=== PATIENT | male | born 1960 | race Caucasian/White ===

== ENCOUNTER 2016-11-17 06:34 | Day surgery (SDC) | payer OTHER ==
[~2016-11-17] VITALS: Ht 172.7 cm; Wt 113.1 kg
[~2016-11-17 06:34] MED LIST: AMOX500C PO; LISI20TA3 PO; MEDR4PAK PO; METO50TA PO
[2016-11-17] MEDS ORDERED: NS 1000P @30 MLS/HR (KVO) IV SCH (07:00)
[2016-11-17 07:13] VITALS: BP 132/82; PULSE 62; RESP 18; TEMP 98; O2SAT 96
[2016-11-17] MEDS ORDERED: OMEGCAP PO (07:18)
[2016-11-17] MEDS ORDERED: XARE20TA PO (07:18)
[2016-11-17] MEDS ORDERED: AMLO5TAB2 PO (07:18)
[2016-11-17] MEDS ORDERED: METO100T PO (07:18)
[2016-11-17] MEDS ORDERED: CHOL1CAP24 PO (07:18)
[2016-11-17] MEDS ORDERED: ROSU1TAB4 PO (07:18)
[2016-11-17] MEDS ORDERED: MIDAZOLAM HCL 2 MG/2 ML VIAL ONE (08:30)
[2016-11-17] MEDS ORDERED: HEPARIN-NS/PF INJ 500 ML ONE (08:30)
[2016-11-17] MEDS ORDERED: LORazepam 2 MG/ML VIAL IV PRN (09:15)
[2016-11-17] MEDS ORDERED: MISC INFORMATION XX ONE (09:15)
[2016-11-17] MEDS ORDERED: SODIUM CHLOR 0.9% 250 ML INJ 250 ML IV PRN (09:15)
[2016-11-17] MEDS ORDERED: BACITRACIN OINT 0.9 GM PKT TOP ONE (09:15)
[2016-11-17] MEDS ORDERED: ONDANSETRON HCL 4 MG/2 ML VIAL IV PRN (09:15)
[2016-11-17] MEDS ORDERED: ATROPINE SULFATE 1 MG/ML VIAL IV PRN (09:15)
[2016-11-17] MEDS ORDERED: LIDOCAINE HCL 1% 50 ML VIAL INFIL PRN (09:15)
--- NOTE | 2016-11-17 09:18 | CATHPROC ---
pickrset HIS Report Study Information Study Number Admission Scheduled Start Study Start [id number] Nov 17 2016 6:34AM 11/17/2016 Nov 17 2016 8:20AM [facility] Service Cardiac Catheterization Admit Source Facility Department Other [facility] - Net Developer Consultant Physician and Clinical Staff Initial Dorian Grullon Principal Automation Engineer Srinivasa Andersen,PREET Recorder Reyna Johnson,RT(R) (BS) Scrub Edi TomasRT(R) Procedures Performed Procedure Location (Site) Vessel Name Angiogram LV AO Arch (A1) Aorta Angiogram LV LV Ventricle Coronary Angiograms LCA Left Coronary Coronary Angiograms RCA Right Coronary L Heart Cath Equipment Time Card Folder Description Size Mfg Part Number Used/Scraped TRANSDUCER, TRLinux VoiceLILI [id number] 08:22 DIAS MACIAS * Used W/STOCKCOCK *[id number] [id number] *[id number] [id number] *[id number] [id number] *[id number] 534-650S *[id number] 08:22 MEDLINE IND[employer]ES PACK, CCL CUSTOM * Used *[id number] 08:22 Avison Young PACER PEN, SKIN DUAL W/ RULER * Used *[id number] 08:22 Datalink MEDICAL SHEATH, FR6.5 PRELUDE 11CM FR 6.5 038ACT Used *[id number] 08:22 Datalink MEDICAL WIRE, 3MMJ .035 180CM 180CM Used *[id number] 08:22 NAMIC MANIFOLD, 4 PORT * Used *[id number] 09:09 NAMIC TUBING, HIGH PRESSURE 48" 48" Used *[id number] 08:22 NYCOMED OMNIPAQUE, 350 MG, 100ML 100ML [id number] Used [id number] 08:22 JONES MEDICAL BLANKET,WARM AIR CCL * Used *[id number] History: Current Medications Medication Dosage/Unit Route Frequency Last Date/Time Taken LISINOPRIL Beta Vinnie Statins (any) History: Allergies Allergy Reaction No Known Allergies History: Risk Factors Family History of Hypertension Dyslipidemia Previous [place] Previous Heart Failure Premature CAD Yes Yes Yes No No Prior Valve Prior PCI Prior CABG Surgery No No No Cerebrovascular Peripheral Artery Chronic Lung On Dialysis Diabetes Disease Disease Disease No No No No No History: Stress Tests Stress or Imaging Studies Performed Yes Standard Exercise Stress Test No Stress Echo No Stress Test SPECT Stress Test SPECT Result Stress Test SPECT Ischemia Risk/Extent Yes Positive High Stress Test CMR No Cardiac CTA Coronary Calcium Score No No History: Other Current Smoker Method Quit Packs a Day Years Used Pack Years No Cigarettes 14 Years Ago 1 25 25 Labs Hgb (g/dl) Hct (%) RBC (MIL/MM3) WBC (l/cumm) Platelets (thousands) 11.60-17.00 35.00-51.00 4.00-5.90 4.00-11.00 150.00-450.00 13.8 41.3 5.1 5.7 196 Glucose (mg/dl) BUN (mg/dl) Creatinine (mg/dl) BUN:Creatinine (1:x) 74.00-106.00 7.00-18.00 0.50-1.30 10.00-20.00 66 17 0.7 24.3 Na (meq/l) K (meq/l) Ca (mg/dl) 136.00-145.00 3.50-5.10 8.50-10.10 141 4.3 9.3 INR (PTT:PT) 0.90-1.10 1.1 CPK-MB (ng/ML) 0.50-3.60 Not Drawn Medication Medication Total Dose (Bolus/Oral) Medication Total Dosage/Unit 1% XYLOCAINE 40 mL VERSED 2 mg Medications (Bolus/Oral) Medication Time Given Dosage/Unit Administered By Reason 1% XYLOCAINE 11/17/2016 8:39:41 AM 20 mL Dorian Torrez 20 mL 1% XYLOCAINE given in lab by Dorian Torrez in Right Groin via Subcutaneous. VERSED 11/17/2016 8:39:55 AM 2 mg Dorian Torrez 2 mg VERSED given in lab by Dorian Torrez in Left Antecubital via Peripheral IV. 1% XYLOCAINE 11/17/2016 8:47:30 AM 20 mL Dorian Torrez 20 mL 1% XYLOCAINE given in lab by Dorian Torrez in Left Groin via Subcutaneous. Medication (Drip) Medication Time Given Dosage/Unit Concentration/Unit Diluent (ml) Solutio n IV Solutions 11/17/2016 8:30:38 AM 0 mL (IV) 500 NaCl .9 IV Solutions given in lab by Srinivasa Andersen RN in Left Wrist via Peripheral IV. Pump/Drip Flow = 20 ml/hr using NaCl .9. Initial Case Assessment Cardiovascular HR Rhythm NIBP Chest Pain 59 reg 144/88 0 Edema Present Skin color Skin None Normal Warm Dry Circulatory - Right Pulses Dorsalis Pedis Femoral 1 1 Scale (0,1,2,3,4,d) Circulatory - Left Pulses Dorsalis Pedis Femoral 1 1 Scale (0,1,2,3,4,d) Circulatory - Lower Extremities Color Lower Right Color Lower Left Normal Normal Neurological State Oriented to time-place- Alert Moves all extremities person Respiration - General Respiration Rate SpO2 (%) (B/min) 17 98 Chronological Log Time Study Chronological Log 8:23:06 Patient arrived via Bed. 8:23:07 Patient Name, D.O.B, / Armband Verified By R.N. 8:23:07 Consent signed by the physician and the patient and verified by the Net Developer Consultant staff. 8:23:08 Pre-op and post- op instructions given; patient acknowledges understanding of instructions. 8:23:09 Verbal Stimulation=2 Physical Stimulation=2 Airway=2 Respiration=2 TOTAL=8. (0=absent, 1=tesfaye ited, 2=present) 8:23:11 Presedation assessment performed by Net Developer Consultant RN. 8:30:27 Patient has been NPO for More than 6Hrs. 8:30:29 Skin Breakdown none per pt 8:30:35 Patient Warmer Placed on the Table. 8:30:37 A # 20 IV was noted in the Wrist (left). Grade = 0 8:30:38 IV Solutions given in lab by Srinivasa Andersen, RN in Left Wrist via Peripheral IV. Pump/Drip F low = 20 ml/hr using NaCl .9. 8:30:39 History and physical on the chart or being dictated. Assessment: Initial Case, HR=59 BPM, Rhythm=reg, FRGN=560/88 mmhg, Chest Pain=0, Edema=None, Col or=Normal, Skin = Warm, Dry Right Pulses: Adrian Ped=1, Femoral=1 Left Pulses: Adrian Ped=1, Femoral=1 8:30:41 Lower Right Extremities: Color=Normal Lower Left Extremities: Color=Normal Neurological: State=Alert, Ox3, FRANK Respiration: Resp=17 B/min, SpO2=98 % Vitals capture started with the following parameters, Patient=Adult, Interval=5 min, Initial Pre ypnar=348 mmHg, 8:30:43 Deflation Rate=5 mmHg 8:31:55 HR=60 bpm, CJVO=530/88 mmhg, SpO2=98.0 %, Resp=17 B/min, Pain=0, Cipriano=10, Aaron=2 8:32:00 Reference ECG taken 8:34:02 Bilateral groins prepped with 2% chlorhexidine, and with a 3 min. waiting time. 8:36:23 HR=62 bpm, NCMA=703/93 mmhg, SpO2=99.0 %, Resp=13 B/min, Pain=0, Cipriano=10, Aaron=2 Time Out. Correct patient, correct procedure,correct physician, power injector loaded with contr ast with surgical team 8:39:20 present. Time Out Concurred by , individual staff in procedure 8:39:39 Case Start 8:39:41 20 mL 1% XYLOCAINE given in lab by Dorian Torrez in Right Groin via Subcutaneous. 8:39:55 2 mg VERSED given in lab by Dorian Torrez in Left Antecubital via Peripheral IV. 8:41:26 HR=64 bpm, SBDJ=765/90 mmhg, SpO2=98.0 %, Resp=16 B/min, Pain=0, Cipriano=10, Aaron=2 8:42:30 Pressure channel 1 zeroed. 8:46:23 HR=63 bpm, YATB=744/83 mmhg, SpO2=97.0 %, Resp=17 B/min, Pain=0, Cipriano=10, Aaron=2 8:47:30 20 mL 1% XYLOCAINE given in lab by Dorian Torrez in Left Groin via Subcutaneous. 8:51:20 HR=65 bpm, VHXW=808/91 mmhg, SpO2=99.0 %, Resp=15 B/min, Pain=0, Cipriano=10, Aaron=2 8:51:32 Access site was Left Femoral Artery. 8:51:36 A SHEATH, FR6.5 PRELUDE 11CM FR 6.5 was advanced into the Fem Art (left) using the Percutane ous technique. A JL 4.0 INFINITI CATHETER FR 6 was advanced over a wire. OMNIPAQUE, 350 MG, 100ML 100ML was use d for 8:51:50 injections. Recorded Pressure: Ao, NZ=453, Condition=Condition 1 8:52:27 (Aorta) Ao 120/86/102 8:54:00 Catheter was removed A JR 4.0 INFINITI CATHETER FR 6 was advanced over a wire. OMNIPAQUE, 350 MG, 100ML 100ML was use d for 8:54:39 injections. 8:55:32 The RCA was injected and visualized at various angles. OMNIPAQUE, 350 MG, 100ML 100ML used. 8:56:25 HR=62 bpm, XYSZ=674/79 mmhg, SpO2=99.0 %, Resp=17 B/min, Pain=0, Cipriano=10, Aaron=2 8:57:01 Catheter was removed A JL 4.5 INFINITI CATHETER FR 6 was advanced over a wire. OMNIPAQUE, 350 MG, 100ML 100ML was u sed for 8:57:06 injections. 8:58:49 The LCA was injected and visualized at various angles. OMNIPAQUE, 350 MG, 100ML 100ML use d. 8:59:55 Catheter was removed A PIGTAIL STR INFINITI CATHETER FR 6 was advanced over a wire. OMNIPAQUE, 350 MG, 100ML 100ML was used for 9:00:11 injections. 9:01:26 HR=60 bpm, MJRU=724/82 mmhg, SpO2=99.0 %, Resp=16 B/min, Pain=0, Cipriano=10, Aaron=2 Recorded Pressure: LV, HR=63, Condition=Condition 1 9:01:49 (Left Ventricle) LV 132/8/24 9:05:08 The LV was injected at 12 cc/sec for a total of 30. OMNIPAQUE, 350 MG, 100ML 100ML used. 9:06:11 The AO Arch (A1) was injected at 20 cc/sec for a total of 40. OMNIPAQUE, 350 MG, 100ML 100 ML used. 9:06:27 HR=62 bpm, FCGP=926/74 mmhg, VaC1=959.0 %, Resp=16 B/min, Pain=0, Cipriano=10, Aaron=2 9:07:18 Catheter was removed 9:08:34 Case End 9:08:43 Catheter(s) removed without difficulty 9:08:50 No case complications noted. 9:08:53 Cine recording checked. 9:09:01 Bedside Report will be given. 9:09:04 Contrast Scanned 9:09:16 A Left Heart Cath was performed. 9:09:23 Sterile dressing applied to site 9:09:33 DOCU called. Spoke to Carmita. 9:11:27 FOWP=738/87 mmhg, SpO2=98.0 %, Pain=0, Cipriano=10, Aaron=2 9:11:42 Vitals capture stopped. 9:14:34 Patient moved to stretcher End Study - Contrast Media Used In Study Contrast Total Opened (mL) Total Used (mL) Total Wasted (mL) Omnipaque 120 120 0 End Study - Maximum Contrast Load Max Contrast Load (mL) 807.8 End Study - Radiation Exposure Fluoro Time (minutes) 2.9 End Study - Patient Disposition Complications Transferred To Interventional Outcome No Net Developer Consultant Holding No attempt made
[2016-11-17] MEDS ORDERED: IOHEXOL 350 MG/ML 100 ML BTL (for Cath Lab) OTHER ONE (09:20)
--- NOTE | 2016-11-17 10:00 | MA ---
cc: DORIAN TORREZ MD DATE 11/17/2016 PROCEDURE The patient was prepped and draped in the usual fashion. Pulse was not able to be very well palpated in the right groin and so the left groin was used for access with Seldinger technique. Coronary angiography was done with Tariq preformed catheters. Left ventriculography was done with pigtail catheter as was an aortogram. RESULTS Aortic pressure was 120/86. Left ventricular end-diastolic pressure was 8. There was no gradient across the aortic valve. CORONARY ANGIOGRAPHY The right coronary was anatomically dominant. Mild luminal irregularities were present throughout its course but no high-grade stenoses were seen. The left main was normal. The left circumflex artery was a very small atretic system. No significant stenoses were seen. The left anterior descending artery was not transapical. No significant stenoses were noted throughout its course. LEFT VENTRICULOGRAM Overall left ventricular size and function was normal with an EF estimated at 50%. No mitral regurgitation was present. AORTOGRAM An aortogram did not reveal any evidence for varices or aortic insufficiency. Dorian Torrez MD DLJm/SSB /9:22 AM /9:59 AM
== END 2016-11-17 14:15 | disposition home or self-care (01) ==
LOC: HDOC 06:34 → HDIC 06:34 → HDOC 14:15
PROVIDERS: ATTEND Internal Medicine Cardiovascular Disease
DX: R94.39 Abnormal result of other cardiovascular function study (principal); I48.91 Unspecified atrial fibrillation; Q21.0 Ventricular septal defect; I10 Essential (primary) hypertension; E78.5 Hyperlipidemia, unspecified; E66.9 Obesity, unspecified; R01.1 Cardiac murmur, unspecified; E55.9 Vitamin D deficiency, unspecified; Z87.891 Personal history of nicotine dependence
CPT/HCPCS: 93458; 93567; C1769; C1893; J1644; J2250; J7030; Q9967

== ENCOUNTER 2017-02-02 20:36 | Emergency (ER) | payer OTHER ==
[~2017-02-02 20:36] MED LIST changes: +AMLO5TAB2 PO; -AMOX500C PO; +CHOL1CAP24 PO; -MEDR4PAK PO; +METO100T PO; -METO50TA PO; +OMEGCAP PO; +ROSU1TAB4 PO; +XARE20TA PO
[2017-02-02 20:37] VITALS: BP 146/85; PULSE 75; RESP 16; TEMP 97.9; O2SAT 95
[2017-02-02] MEDS ORDERED: SODIUM CHLOR 0.9% 1000 ML INJ 1,000 ML IV SCH (22:01)
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
[2017-02-02] MEDS ORDERED: SODIUM CHLORIDE 0.9% FLUSH 10 ML FLUSH IVF PRN (22:15)
--- NOTE | 2017-02-02 22:25 | RADRPT ---
EXAM DATE/TIME: 02/02/2017 22:04 [place] COMPARISON: No previous studies available for comparison. INDICATIONS : Palpitations MEDICAL HISTORY : Hypertension. SURGICAL HISTORY : None. ENCOUNTER: Initial ACUITY: 1 day PAIN SCORE: 0/10 LOCATION: Chest FINDINGS: The heart is minimally prominent. The pulmonary vascular pattern is normal. The lungs are clear. CONCLUSION: 1. Minimal cardiomegaly. 2. No acute focal pulmonary infiltrate or pulmonary vascular congestion. Rohith Porras MD on February 02, 2017 at 22:18 Board Certified Radiologist. This report was verified electronically.
[2017-02-02 22:33] LABS: AUTOMATED NEUTROPHIL # 4.1 TH/MM3 (1.8-7.7); BASOPHIL # 0.1 TH/MM3 (0-0.2); BASOPHIL % 1.5 % (0.0-2.0); EOSINOPHIL # 0.2 TH/MM3 (0-0.4); EOSINOPHIL % 2.3 % (0.0-4.0); HEMATOCRIT 42.6 % (39.0-51.0); HEMO FLAGS DIFF FINAL; LYMPH % 33.8 % (9.0-44.0); LYMPHOCYTE # 2.5 TH/MM3 (1.0-4.8); MEAN CELL VOLUME 81.7 FL (80.0-100.0); MEAN CORPUSCULAR HEMOGLOBIN 27.5 PG (27.0-34.0); MEAN CORPUSCULAR HGB CONC 33.7 % (32.0-36.0); MONO % 7.2 % (0.0-8.0); NEUT % 55.2 % (16.0-70.0); PLATELET COUNT 225 TH/MM3 (150-450); RED BLOOD COUNT 5.21 MIL/MM3 (4.50-5.90); RED CELL DISTRIBUTION WIDTH 14.6 % (11.6-17.2); WHITE BLOOD COUNT 7.4 TH/MM3 (4.0-11.0)
[2017-02-02 22:41] VITALS: BP 136/77; PULSE 70; RESP 16; O2SAT 96
[2017-02-02 22:55] LABS: ANION GAP 8 MEQ/L (5-15); BICARBONATE 22.8 MEQ/L (21.0-32.0); BLOOD UREA NITROGEN 26 MG/DL (7-18); CHLORIDE 106 MEQ/L (98-107); GLOMERULAR FILTRATION RATE 56 ML/MIN (>89); MAGNESIUM 2.1 MG/DL (1.5-2.5); POTASSIUM 3.9 MEQ/L (3.5-5.1); SODIUM (NA) 137 MEQ/L (136-145)
[2017-02-02 23:00] LABS: CREATINE KINASE 158 U/L (39-308)
[2017-02-02 23:12] LABS: CKMB 1.2 NG/ML (0.5-3.6)
--- NOTE | 2017-02-03 14:16 | EKG ---
Date Performed: 02/02/2017 Time Performed: 21:29:58 PTAGE: 56 years EKG: Sinus rhythm RIGHT BUNDLE BRANCH BLOCK ABNORMAL ECG Compared to prior tracing no significant change PREVIOUS TRACING : 03/16/2001 10.44 DOCTOR: Robert Krishnan Interpretating Date/Time 02/03/2017 14:12:01
== END 2017-02-03 | disposition home or self-care (01) ==
LOC: NEPC 20:36
DX: E86.0 Dehydration (principal); I10 Essential (primary) hypertension; I48.91 Unspecified atrial fibrillation; Z79.01 Long term (current) use of anticoagulants
CPT/HCPCS: 71010; 80048; 82550; 82552; 83735; 84484; 85025; 93005; 99285; J7030

== ENCOUNTER 2017-11-16 18:11 | Inpatient (IN) ==
[2017-11-16] MEDS ORDERED: Piperacil/Tazo 4.5 GM Premix 4.5 GM/100 ML BAG IV.SIG STA (19:21)
[2017-11-16] MEDS ORDERED: Vancomycin Inj 1,000 MG in Sodium Chlor 0.9% Inj 250 ML IV.SIG STA (19:21)
--- NOTE | 2017-11-16 19:38 | ED ---
HPI General Chief complaint: Skin/Abscess/Foreign Body Stated complaint: Sent By Dr/Infection to Left Leg Time Seen by Provider: 11/16/17 19:00 Source: patient and old records reviewed Mode of arrival: ambulatory Limitations: no limitations History of Present Illness HPI narrative: Patient is a 57-year-old male presenting to the emergency department for evaluation of left lower leg cellulitis. Patient was sent by his primary doctor due to failed outpatient therapy. Patient has completed a course of Bactrim and Keflex and continues to have erythema to the left lower leg. Patient states he thought it started as an insect bite 8 days ago. 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 Upon return back home here he went to his primary doctor who then sent him to the emergency department. Per medical records patient had a DVT ruled out in [place]. Patient reports a history of hypertension, heart murmur. He denies any IV drug use or diabetes. Symptom onset was gradual , symptoms are moderate in nature. There are no alleviating factors. Patient has been driving from [place] and his leg has been in a dependent position. Related Data Home Medications Medication Instructions Recorded Confirmed allopurinol 100 mg PO EVERY OTHER DAY 11/17/17 11/17/17 amlodipine 5 mg PO DAILY 11/17/17 11/17/17 aspirin [Rex Chewable Aspirin] 81 mg PO DAILY 11/17/17 11/17/17 cholecalciferol (vitamin D3) 1,000 unit PO DAILY 11/17/17 11/17/17 [Vitamin D3] furosemide [Lasix] 20 mg PO DAILY 11/17/17 11/17/17 losartan 50 mg PO BID 11/17/17 11/17/17 metoprolol tartrate 100 mg PO BID 11/17/17 11/17/17 omega-3 fatty acids 2,000 mg PO DAILY 11/17/17 11/17/17 pantoprazole 40 mg PO DAILY 11/17/17 11/17/17 rosuvastatin 5 mg PO DAILY 11/17/17 11/17/17 Allergies Allergy/AdvReac Type Severity Reaction Status Date / Time No Known Allergies Allergy Uncoded 02/02/17 21:20 Review of Systems ROS Unobtainable All other systems reviewed negative except as stated in HPI PMFSH History History Provided By: Patient Social History Social History Substance History: No History of Abuse Second Hand Smoke Exposure: Yes Smoking Status: Former smoker Tobacco Type: Cigarettes Packs Per Day: 1 Cigarettes Per Day: 20.0 How Often Do You Have a Drink Containing Alcohol: Monthly or less Recent Out of Country Travel within the Last 8 Weeks: No Exam Const General: cooperative and comfortable Nutritional Appearance: obese Orientation: alert, awake and oriented x3 HENMT Head: normal to inspection Ears: hearing grossly normal bilaterally Eyes General: appearance normal, both eyes and all related structures Pupils: PERRL EOM: EOM intact bilaterally Resp Effort & Inspection: normal respiratory effort, normal respiratory pattern, no audible wheezes and not labored Auscultation: clear to auscultation bilaterally Cardio Rate: regular rate Rhythm: regular rhythm Heart Sounds: murmur systolic Pulses: dorsalis pedis present bilaterally 2+ GI Inspection: normal to inspection Palpation: soft, no guarding and nontender Auscultation: normal bowel sounds Skin General: erythema Lesions: lesion noted (MID ANTERIOR SPAIN BULLOUS LESION) Neuro General: alert, awake and oriented x3 Cranial Nerves: CN's II-XI intact bilaterally Extrem General: calf tenderness Left lower extremity: edema Details: non-pitting and lower leg Psych Appearance: grossly normal Mental Status: mental status grossly normal Speech and Movement: speech and movement normal Mood: congruent mood Course Initial Documented Vital Signs Temperature 98.4 F 11/16/17 18:19 Pulse Rate 83 11/16/17 18:19 Respiratory Rate 15 11/16/17 18:19 Blood Pressure 151/78 H 11/16/17 18:19 Pulse Oximetry 95 11/16/17 18:19 Last Documented Vital Signs Temperature 98.1 F 11/19/17 16:22 Pulse Rate 90 11/19/17 16:22 Respiratory Rate 18 11/19/17 16:22 Blood Pressure 149/78 H 11/19/17 16:22 Pulse Oximetry 97 11/19/17 16:22 Medical Decision Making [facility] Narrative Medical decision making narrative: 57-year-old male presenting for evaluation of cellulitis to his left lower extremity after failing outpatient therapy. Patient's vital signs are stable, labs and imaging ordered and pending. Wound culture obtained, blood cultures ordered. Empiric antibiotics ordered. Patient denied a history of diabetes however according to the medical records sent with him he had abnormal A1c and was diagnosed with metabolic syndrome. Patient was given Zosyn and vancomycin. Discussed findings with Dr. Louis who accepted admission. Patient will be admitted at this time for IV antibiotic therapy secondary to failing outpatient therapy for cellulitis. Ultrasound of the left lower extremity was negative for DVT. Lab Data Lab results reviewed: Yes I reviewed the patient's lab results. Result diagrams: 11/19/17 07:12 11/18/17 04:37 Lab Results 11/16/17 11/16/17 11/16/17 Range/Units 20:04 20:07 20:07 WBC 7.4 (4.0-11.0) th/mm3 RBC 4.58 (4.50-5.90) mil/mm3 Hgb 12.2 L (13.0-17.0) gm/dL Hct 36.9 L (39.0-51.0) % MCV 80.6 (80.0-100.0) fL MCH 26.6 L (27.0-34.0) pg MCHC 33.1 (32.0-36.0) % RDW 14.8 (11.6-17.2) % Plt Count 499 H (150-450) th/mm3 MPV 7.4 (7.0-11.0) fL Neut % (Auto) 68.7 (16.0-70.0) % Lymph % (Auto) 23.3 (9.0-44.0) % Vermilion % (Auto) 6.3 (0.0-8.0) % Eos % (Auto) 1.2 (0.0-4.0) % Baso % (Auto) 0.5 (0.0-2.0) % Neut # (Auto) 5.1 (1.8-7.7) th/mm3 Lymph # (Auto) 1.7 (1.0-4.8) th/mm3 Vermilion # (Auto) 0.5 (0.0-0.9) th/mm3 Eos # (Auto) 0.1 (0.0-0.4) th/mm3 Baso # (Auto) 0.0 (0.0-0.2) th/mm3 WBC Differential . Differential Comment Auto diff final Sodium 137 (136-145) meq/L Potassium 4.3 (3.5-5.1) meq/L Chloride 104 (98-107) meq/L Carbon Dioxide 23.0 (21.0-32.0) meq/L Anion Gap 10 (5-15) meq/L BUN 17 (7-18) mg/dL Creatinine 1.34 H (0.60-1.30) mg/dL Estimated GFR 55 L (>89) mL/min POC Glucose 103 (68-110) mg/dl Random Glucose 94 (74-106) mg/dL Lactic Acid (0.4-2.0) mmol/L Calcium 9.4 (8.5-10.1) mg/dL Total Bilirubin 0.4 (0.2-1.0) mg/dL AST 60 H (15-37) U/L ALT 90 H (12-78) U/L Alkaline Phosphatase 97 (45-117) U/L Total Protein 8.9 H (6.4-8.2) g/dL Albumin 3.1 L (3.4-5.0) g/dL 11/16/17 11/17/17 11/18/17 Range/Units 20:12 08:54 04:37 WBC 8.1 (4.0-11.0) th/mm3 RBC 4.23 L (4.50-5.90) mil/mm3 Hgb 11.7 L (13.0-17.0) gm/dL Hct 34.4 L (39.0-51.0) % MCV 81.3 (80.0-100.0) fL MCH 27.7 (27.0-34.0) pg MCHC 34.0 (32.0-36.0) % RDW 14.6 (11.6-17.2) % Plt Count 420 (150-450) th/mm3 MPV 7.0 (7.0-11.0) fL Neut % (Auto) 73.3 H (16.0-70.0) % Lymph % (Auto) 18.0 (9.0-44.0) % Vermilion % (Auto) 7.0 (0.0-8.0) % Eos % (Auto) 1.3 (0.0-4.0) % Baso % (Auto) 0.4 (0.0-2.0) % Neut # (Auto) 5.9 (1.8-7.7) th/mm3 Lymph # (Auto) 1.5 (1.0-4.8) th/mm3 Vermilion # (Auto) 0.6 (0.0-0.9) th/mm3 Eos # (Auto) 0.1 (0.0-0.4) th/mm3 Baso # (Auto) 0.0 (0.0-0.2) th/mm3 WBC Differential . Differential Comment Auto diff final Sodium (136-145) meq/L Potassium (3.5-5.1) meq/L Chloride (98-107) meq/L Carbon Dioxide (21.0-32.0) meq/L Anion Gap (5-15) meq/L BUN (7-18) mg/dL Creatinine (0.60-1.30) mg/dL Estimated GFR (>89) mL/min POC Glucose 109 (68-110) mg/dl Random Glucose (74-106) mg/dL Lactic Acid 1.5 (0.4-2.0) mmol/L Calcium (8.5-10.1) mg/dL Total Bilirubin (0.2-1.0) mg/dL AST (15-37) U/L ALT (12-78) U/L Alkaline Phosphatase (45-117) U/L Total Protein (6.4-8.2) g/dL Albumin (3.4-5.0) g/dL 11/18/17 11/18/17 11/18/17 Range/Units 04:37 08:31 12:41 WBC (4.0-11.0) th/mm3 RBC (4.50-5.90) mil/mm3 Hgb (13.0-17.0) gm/dL Hct (39.0-51.0) % MCV (80.0-100.0) fL MCH (27.0-34.0) pg MCHC (32.0-36.0) % RDW (11.6-17.2) % Plt Count (150-450) th/mm3 MPV (7.0-11.0) fL Neut % (Auto) (16.0-70.0) % Lymph % (Auto) (9.0-44.0) % Vermilion % (Auto) (0.0-8.0) % Eos % (Auto) (0.0-4.0) % Baso % (Auto) (0.0-2.0) % Neut # (Auto) (1.8-7.7) th/mm3 Lymph # (Auto) (1.0-4.8) th/mm3 Vermilion # (Auto) (0.0-0.9) th/mm3 Eos # (Auto) (0.0-0.4) th/mm3 Baso # (Auto) (0.0-0.2) th/mm3 WBC Differential Differential Comment Sodium 135 L (136-145) meq/L Potassium 4.3 (3.5-5.1) meq/L Chloride 104 (98-107) meq/L Carbon Dioxide 20.0 L (21.0-32.0) meq/L Anion Gap 11 (5-15) meq/L BUN 15 (7-18) mg/dL Creatinine 1.05 (0.60-1.30) mg/dL Estimated GFR 73 L (>89) mL/min POC Glucose 109 131 H (68-110) mg/dl Random Glucose 114 H (74-106) mg/dL Lactic Acid (0.4-2.0) mmol/L Calcium 9.2 (8.5-10.1) mg/dL Total Bilirubin 0.6 (0.2-1.0) mg/dL AST 50 H (15-37) U/L ALT 90 H (12-78) U/L Alkaline Phosphatase 86 (45-117) U/L Total Protein 8.2 D (6.4-8.2) g/dL Albumin 2.8 L (3.4-5.0) g/dL 11/18/17 11/18/17 11/19/17 Range/Units 16:27 22:59 02:26 WBC (4.0-11.0) th/mm3 RBC (4.50-5.90) mil/mm3 Hgb (13.0-17.0) gm/dL Hct (39.0-51.0) % MCV (80.0-100.0) fL MCH (27.0-34.0) pg MCHC (32.0-36.0) % RDW (11.6-17.2) % Plt Count (150-450) th/mm3 MPV (7.0-11.0) fL Neut % (Auto) (16.0-70.0) % Lymph % (Auto) (9.0-44.0) % Vermilion % (Auto) (0.0-8.0) % Eos % (Auto) (0.0-4.0) % Baso % (Auto) (0.0-2.0) % Neut # (Auto) (1.8-7.7) th/mm3 Lymph # (Auto) (1.0-4.8) th/mm3 Vermilion # (Auto) (0.0-0.9) th/mm3 Eos # (Auto) (0.0-0.4) th/mm3 Baso # (Auto) (0.0-0.2) th/mm3 WBC Differential Differential Comment Sodium (136-145) meq/L Potassium (3.5-5.1) meq/L Chloride (98-107) meq/L Carbon Dioxide (21.0-32.0) meq/L Anion Gap (5-15) meq/L BUN (7-18) mg/dL Creatinine (0.60-1.30) mg/dL Estimated GFR (>89) mL/min POC Glucose 118 H 142 H 112 H (68-110) mg/dl Random Glucose (74-106) mg/dL Lactic Acid (0.4-2.0) mmol/L Calcium (8.5-10.1) mg/dL Total Bilirubin (0.2-1.0) mg/dL AST (15-37) U/L ALT (12-78) U/L Alkaline Phosphatase (45-117) U/L Total Protein (6.4-8.2) g/dL Albumin (3.4-5.0) g/dL 11/19/17 11/19/17 11/19/17 Range/Units 07:12 09:44 17:29 WBC 8.7 (4.0-11.0) th/mm3 RBC 4.31 L (4.50-5.90) mil/mm3 Hgb 11.5 L (13.0-17.0) gm/dL Hct 34.6 L (39.0-51.0) % MCV 80.2 (80.0-100.0) fL MCH 26.7 L (27.0-34.0) pg MCHC 33.2 (32.0-36.0) % RDW 14.6 (11.6-17.2) % Plt Count 432 (150-450) th/mm3 MPV 7.2 (7.0-11.0) fL Neut % (Auto) 71.0 H (16.0-70.0) % Lymph % (Auto) 19.4 (9.0-44.0) % Vermilion % (Auto) 8.4 H (0.0-8.0) % Eos % (Auto) 0.7 (0.0-4.0) % Baso % (Auto) 0.5 (0.0-2.0) % Neut # (Auto) 6.2 (1.8-7.7) th/mm3 Lymph # (Auto) 1.7 (1.0-4.8) th/mm3 Vermilion # (Auto) 0.7 (0.0-0.9) th/mm3 Eos # (Auto) 0.1 (0.0-0.4) th/mm3 Baso # (Auto) 0.0 (0.0-0.2) th/mm3 WBC Differential . Differential Comment Auto diff final Sodium (136-145) meq/L Potassium (3.5-5.1) meq/L Chloride (98-107) meq/L Carbon Dioxide (21.0-32.0) meq/L Anion Gap (5-15) meq/L BUN (7-18) mg/dL Creatinine (0.60-1.30) mg/dL Estimated GFR (>89) mL/min POC Glucose 107 114 H (68-110) mg/dl Random Glucose (74-106) mg/dL Lactic Acid (0.4-2.0) mmol/L Calcium (8.5-10.1) mg/dL Total Bilirubin (0.2-1.0) mg/dL AST (15-37) U/L ALT (12-78) U/L Alkaline Phosphatase (45-117) U/L Total Protein (6.4-8.2) g/dL Albumin (3.4-5.0) g/dL Imaging Data Radiologist's impression: ITS Impressions Venous Doppler Study 11/16/17 19:39 CONCLUSION: 1. Negative for deep venous thrombosis Lower Extremity Ultrasound 11/17/17 00:00 CONCLUSION: 1. Soft tissue edema without focal drainable fluid collection. Discharge Plan Discharge Disposition Patient Disposition: 30 Still Patient Discharge Condition Condition: Stable Discharge Details Discharge Problem: Cellulitis Physicians Team ED Provider: Julieta Nugent ED Midlevel Provider: Ruthie Aguilera Primary Care Provider: Jose Manuel Aldrich Attending Provider: Neno Alva Other Providers: Krystle Link ED Status: Left Department Discharge Information Discharge Date/Time: 11/17/17 01:18
[2017-11-16 20:52] LABS: Baso % (Auto) 0.5 % (0.0-2.0); Eos # (Auto) 0.1 th/mm3 (0.0-0.4); Eos % (Auto) 1.2 % (0.0-4.0); Hematocrit 36.9 % (39.0-51.0); Hemoglobin 12.2 gm/dL (13.0-17.0); Lymph # (Auto) 1.7 th/mm3 (1.0-4.8); Lymph % (Auto) 23.3 % (9.0-44.0); Mean Corpuscular HGB Conc 33.1 % (32.0-36.0); Mean Corpuscular Hemoglobin 26.6 pg (27.0-34.0); Mean Corpuscular Volume 80.6 fL (80.0-100.0); Mean Platelet Volume 7.4 fL (7.0-11.0); Mono # (Auto) 0.5 th/mm3 (0.0-0.9); Mono % (Auto) 6.3 % (0.0-8.0); Neut # (Auto) 5.1 th/mm3 (1.8-7.7); Neut % (Auto) 68.7 % (16.0-70.0); Platelet Count 499 th/mm3 (150-450); Red Blood Count 4.58 mil/mm3 (4.50-5.90); Red Cell Distribution Width 14.8 % (11.6-17.2); White Blood Count 7.4 th/mm3 (4.0-11.0)
[2017-11-16 21:00] LABS: Albumin 3.1 g/dL (3.4-5.0); Anion Gap 10 meq/L (5-15); Aspartate Aminotransferase 60 U/L (15-37); Blood Urea Nitrogen 17 mg/dL (7-18); Calcium 9.4 mg/dL (8.5-10.1); Chloride 104 meq/L (98-107); Glomerular Filtration Rate 55 mL/min (>89); Glucose,Random 94 mg/dL (74-106); Potassium 4.3 meq/L (3.5-5.1); Sodium 137 meq/L (136-145)
[2017-11-16 21:13] LABS: Alanine Aminotransferase 90 U/L (12-78); Alkaline Phosphatase 97 U/L (45-117); Total Protein 8.9 g/dL (6.4-8.2)
--- NOTE | 2017-11-16 22:29 | US ---
EXAM DATE: 11/16/2017 10:25 PM EDT AGE/SEX: 57 years / Male INDICATIONS: Left lower extremity redness and swelling. CLINICAL DATA: This is the patient's initial encounter. Patient reports that signs and symptoms have been present for 1 week and indicates a pain score of 4/10. MEDICAL/SURGICAL HISTORY: . Cellulitis. None. COMPARISON: No prior exams available for comparison. TECHNIQUE: Venous ultrasound of both lower extremities was performed from the inguinal ligament to t he proximal calf. Real-time, color Doppler and spectral tracing, compression and augmentation techni ques were used. FINDINGS: Normal compression of the deep venous system from the inguinal region to the proximal calf . No echogenic clot is seen. Normal response of the venous system to augmentation and respiration. CONCLUSION: 1. Negative for deep venous thrombosis Electronically signed by: Rod Ibrahim MD 11/16/2017 10:28 PM EDT
[2017-11-16] MEDS ORDERED: Vancomycin Consult Pharmacy 1 EACH OTHER SCH (22:49)
[2017-11-16] MEDS: Piperacil/Tazo 4.5 GM Premix 4.5 GM/100 ML BAG IV.SIG SCH (23:42)
--- NOTE | 2017-11-17 08:38 | P.HPIM ---
<Lulú Concepcion E - Last Filed: 11/17/17 15:17> History of Present Illness Primary Care Physician: Jose Manuel Aldrich MD Chief Complaint: LLE redness and pain History of Present Illness: Mr. Peralta is a pleasant 57 y/o WM with HTN, hyperlipidemia, diastolic dysfunction, diabetes (diet controlled), congenital VSD, and paroxysmal atrial fibrillation. He presented [facility] the ED at [facility] [place] 11/16[place]17 with complaints of LLE cellulitis. He states that 8 days ago his LLE swelled up and he had an area of pain and redness on the left maradiaga. Pt was having some chills at that time but denies any fevers. 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 1 week ago. He had an US for the LE which was negative for DVT at that time. He was started on Bactrim and Lasix at that time. He states that there was really no improvement and when he was seen by his Chief Credit Officer, Dr. Torrez, on 11/12 for his annual physical for work clearance he was given a prescription for Keflex as well. He did not feel there was really much of any improvement in the erythema and he had an area on the maradiaga that was weeping yellow/clear drainage for the last few days. This prompted him to come to the ED for further evaluation. In the ED his labs noted a normal WBC count of 7.4 and he has been afebrile. He was noted to have ELVIRA with a Creatinine of 1.34/BUN 17, GFR 55. His baseline creatinine is around 0.8. 2D echo (06/01/17) - Moderate LVH - Small VSD -Estimated EF 50-55% -Grade 2 diastolic dysfunction - LA mildly dilated - Mild aortic dilatation at the level of the sinuses of Valsalva. Aortic root diameter is measured at 4.1cm - Trace mitral valve regurgitation - Mild tricuspid valve regurgitation - Estimated mild pulmonary HTN. Mild pulmonary valve regug - Diagnosis (1) Cellulitis (2) ELVIRA (acute kidney injury) (3) Diabetes (4) HTN (hypertension) (5) Paroxysmal A-fib (6) Diastolic dysfunction Inpatient Certification: I certify that the inpatient services were ordered in accordance with Medicare regulations governing the order. This includes certification that hospital inpatient services are reasonable and necessary and in the case of services not specified as inpatient-only under 42 CFR 419.22(n), that they are appropriately provided as inpatient services in accordance to with the 2-midnight benchmark under 43 CFR 412.3(e) [facility] - History History Provided By: Patient - Medical History Medical History: Medical History (Last Updated 11/17/17 @ 09:35 by BRUNO Cr) Diastolic dysfunction History of femur fracture Atherosclerosis Cholelithiasis Elevated hemoglobin A1c measurement GERD (gastroesophageal reflux disease) Gout Hiatal hernia Hyperlipidemia Hypertension Metabolic syndrome Obesity Osteoarthritis Paroxysmal A-fib VSD (ventricular septal defect) Vitamin D deficiency - Surgical History Surgical History: Surgical History (Last Updated 11/17/17 @ 08:48 by BRUNO Cr) History of appendectomy History of cardiac cath History of inguinal hernia repair Hx of tonsillectomy - Family History Family History: Family History (Last Updated 11/17/17 @ 08:36 by BRUNO Cr) Mother CHF (congestive heart failure) - Tobacco History Second Hand Smoke Exposure: Yes Tobacco Use In Past 30 Days: No Smoking Status: Former smoker Tobacco Type: Cigarettes Packs Per Day: 1 - Alcohol History How Often Do You Have a Drink Containing Alcohol: Monthly or less - Substance Use History Substance History: No History of Abuse - Travel History Recent Travel Out of the Country Within the Last 8 Weeks: No - Immunization History Tetanus Immunization: Unsure Medications and Allergies Allergies Allergy/AdvReac Type Severity Reaction Status Date / Time No Known Allergies Allergy Uncoded 02/02/17 21:20 Home Medications Medication Instructions Recorded Confirmed Type allopurinol 100 mg PO EVERY OTHER DAY 11/17/17 11/17/17 History amlodipine 5 mg PO DAILY 11/17/17 11/17/17 History aspirin [Rex Chewable Aspirin] 81 mg PO DAILY 11/17/17 11/17/17 History cholecalciferol (vitamin D3) 1,000 unit PO DAILY 11/17/17 11/17/17 History [Vitamin D3] furosemide [Lasix] 20 mg PO DAILY 11/17/17 11/17/17 History losartan 50 mg PO BID 11/17/17 11/17/17 History metoprolol tartrate 100 mg PO BID 11/17/17 11/17/17 History omega-3 fatty acids 2,000 mg PO DAILY 11/17/17 11/17/17 History pantoprazole 40 mg PO DAILY 11/17/17 11/17/17 History rosuvastatin 5 mg PO DAILY 11/17/17 11/17/17 History Active Medications: Active Medications Acetaminophen (Tylenol) 650 mg PO Q6H PRN PRN Reason: PAIN 1-10 Amlodipine Besylate (Norvasc) 5 mg PO DAILY [facility] Aspirin (Aspirin Chew) 81 mg PO DAILY [facility] Atorvastatin Calcium (Lipitor) 10 mg PO DAILY [facility] Pharmacy Profile Note (Vancomycin Consult Pharmacy) 0 mls @ 0 mls/hr OTHER UNSCH [facility] Piperacillin/Tazobactam/Dextrose (Zosyn 4.5 Gm Premix) 4.5 gm in 100 mls @ 200 mls/hr IV.SIG Q8H [facility] Last Admin: 11/16/17 23:42 Dose: Not Given Pantoprazole Sodium (Protonix) 40 mg PO DAILY [facility] Exam Vital signs: Vital Signs 11/16/17 18:19 11/16/17 18:28 11/16/17 20:10 Temperature 98.4 F Pulse Rate 83 79 Respiratory Rate 15 16 Blood Pressure 151/78 H 153/77 H Pulse Oximetry 95 97 11/16/17 21:29 11/17/17 00:37 11/17/17 01:22 Temperature 98.9 F Pulse Rate 72 78 74 Respiratory Rate 16 16 16 Blood Pressure 148/69 H 129/60 134/72 Pulse Oximetry 92 L 94 L 96 11/17/17 04:00 11/17/17 04:15 11/17/17 08:23 Temperature 98.5 F 97.7 F Pulse Rate 71 73 76 Respiratory Rate 16 14 Blood Pressure 121/72 139/78 Pulse Oximetry 96 94 L Intake & Output 11/16/17 11/17/17 11/17/17 18:59 06:59 18:59 Weight 68.039 kg 115 kg Other: Weight On Admission 115 kg Narrative: GENERAL: NAD, AAOx3 HEAD: Atraumatic. Normocephalic. No scleral icterus. Mucous membranes pink and moist. NECK: Trachea midline. No JVD. CARDIO: Regular rate and rhythm. 4/6 pansystolic murmur RESP: No accessory muscle use. Clear to auscultation. Breath sounds equal bilaterally. ABD: Abdomen soft, non-tender, nondistended. Hepatic and splenic margins not palpable. EXT: LLE with erythema on the maradiaga from the ankle up to the below the knee, not completely encompassing the calf, an area on the skin with some induration and drainage noted NEUROLOGICAL: Awake and alert. No obvious cranial nerve deficits. Motor grossly within normal limits. Five out of 5 muscle strength in the arms and legs. Normal speech. PSYCHIATRIC: Appropriate mood and affect; insight and judgment normal. Results - Labs CBC & Chem 7: 11/16/17 20:07 11/16/17 20:07 Labs: Short CBC 11/16/17 Range/Units 20:07 WBC 7.4 (4.0-11.0) th/mm3 Hgb 12.2 L (13.0-17.0) gm/dL Hct 36.9 L (39.0-51.0) % Plt Count 499 H (150-450) th/mm3 BMP 11/16/17 20:07 Sodium 137 Potassium 4.3 Chloride 104 Carbon Dioxide 23.0 BUN 17 Creatinine 1.34 H Calcium 9.4 Liver Function 11/16/17 Range/Units 20:07 Total Bilirubin 0.4 (0.2-1.0) mg/dL AST 60 H (15-37) U/L ALT 90 H (12-78) U/L Alkaline Phosphatase 97 (45-117) U/L Albumin 3.1 L (3.4-5.0) g/dL - Imaging Impressions Venous Doppler Study 11/16/17 19:39 CONCLUSION: 1. Negative for deep venous thrombosis Caprini VTE Risk Assessment Caprini Risk Assessment Model: Point Value = 1 Point Value = 2 Point Value = 3 Point Value = 5 Age 41-60 Minor surgery BMI > 25 kg/m2 Swollen legs Varicose veins or History of unexplained or recurrent spontaneous Oral contraceptives or hormone replacement Sepsis (< 1 month) Serious lung disease, including pneumonia (< 1 month) Abnormal pulmonary function Acute myocardial infarction Congestive heart failure (< 1 month) History of inflammatory bowel disease Medical patient at bed rest Age 61-74 Arthroscopic surgery Major open surgery (> 45 min) Laparoscopic surgery (> 45 min) Malignancy Confined to bed (> 72 hours) Immobilizing plaster cast Central venous access Age >= 75 History of VTE Family history of VTE Factor V Leiden Prothrombin [id number] Lupus anticoagulant Anticardiolipin antibodies Elevated serum homocysteine Heparin-induced thrombocytopenia Other congenital or acquired thrombophilia Stroke (< 1 month) Elective arthroplasty Hip, pelvis, or leg fracture Acute spinal cord injury (< 1 month) Prophylaxis Regimen: Total Risk Factor Score Risk Level Prophylaxis Regimen 0-1 Low Early ambulation 2 Moderate Order ONE of the following: *Sequential Compression Device (SCD) *Heparin 5000 units SQ BID 3-4 Higher Order ONE of the following medications: *Heparin 5000 units SQ TID *Enoxaparin/Lovenox 40 mg SQ daily (WT < 150 kg, CrCl > 30 mL/min) *Enoxaparin/Lovenox 30 mg SQ daily (WT < 150 kg, CrCl > 10-29 mL/min) *Enoxaparin/Lovenox 30 mg SQ BID (WT < 150 kg, CrCl > 30 mL/min) AND/OR *Sequential Compression Device (SCD) 5 or more Highest Order ONE of the following medications: *Heparin 5000 units SQ TID (Preferred with Epidurals) *Enoxaparin/Lovenox 40 mg SQ daily (WT < 150 kg, CrCl > 30 mL/min) *Enoxaparin/Lovenox 30 mg SQ daily (WT < 150 kg, CrCl > 10-29 mL/min) *Enoxaparin/Lovenox 30 mg SQ BID (WT < 150 kg, CrCl > 30 mL/min) AND *Sequential Compression Device (SCD) Assessment and Plan - Assessment (1) Cellulitis Code(s): L03.90 - Cellulitis, unspecified Status: Acute Plan: - Pt is a 57 y/o WM with HTN, hyperlipidemia, diastolic dysfunction, diabetes ( diet controlled), congenital VSD, and paroxysmal atrial fibrillation. - He presented to the ED at [facility] on 11/16/17 with complaints of LLE cellulitis. He states that 8 days ago his LLE swelled up and he had an area of pain and redness on the left maradiaga. Pt was having some chills at that time but denies any fevers. 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 1 week ago. He had an US for the LE which was negative for DVT at that time. He was started on Bactrim and Lasix at that time. He states that there was really no improvement and when he was seen by his Chief Credit Officer, Dr. Torrez, on 11/12 for his annual physical for work clearance he was given a prescription for Keflex as well. He did not feel there was really much of any improvement in the erythema and he had an area on the maradiaga that was weeping yellow/clear drainage for the last few days. This prompted him to come to the ED for further evaluation. - In the ED his labs noted a normal WBC count of 7.4 and he has been afebrile. - LE US was negative for DVT - Blood cultures were drawn in the ED - Wound culture was taken in the ED but its not clear if there was drainage that was cultured or if it was a culture from the bullous wound on his maradiaga - Pt was given IV Vanc and Zosyn in the ED - Obtain a soft tissue US to see if there may be any abscess - This was continued overnight following admission. - Pain control PRN - Supportive care - Follow wound response to meds - DVT prophylaxis with Lovenox (2) ELVIRA (acute kidney injury) Code(s): N17.9 - Acute kidney failure, unspecified Status: Acute Plan: - He was noted to have ELVIRA with a Creatinine of 1.34/BUN 17, GFR 55. His baseline creatinine is around 0.8. - This is likely medication induced (Lasix and Bactrim) as well as a component of dehydration - Give IVF - Monitor labs closely - Avoid Nephrotoxic agents (3) Diabetes Code(s): E11.9 - Type 2 diabetes mellitus without complications Status: Chronic Plan: - Pt is diet controlled as an outpt at this time - NovoLog SSI - Accu checks (4) HTN (hypertension) Code(s): I10 - Essential (primary) hypertension Status: Acute Plan: - BP is low normal at admission - Hold Norvasc and Losartan - Resume lower dose of Metoprolol as BP allows -Monitor BP closely (5) Paroxysmal A-fib Code(s): I48.0 - Paroxysmal atrial fibrillation Status: Acute Plan: - Pt is in NSR currently - Cont. BB - Telemetry (6) Diastolic dysfunction Code(s): I51.9 - Heart disease, unspecified Status: Acute Plan: - Pt had recently been placed on Lasix last week for LE edema related to the cellulitis but does not normally take this - He follows with Dr. Torrze regularly - Appears currently compensated -Previous outpt 2D echo (06/01/17) - Moderate LVH - Small VSD - Estimated EF 50-55% - Grade 2 diastolic dysfunction - LA mildly dilated - Mild aortic dilatation at the level of the sinuses of Valsalva. Aortic root diameter is measured at 4.1cm - Trace mitral valve regurgitation - Mild tricuspid valve regurgitation - Estimated mild pulmonary HTN. Mild pulmonary valve regug H&P: Quality - VTE Deep Vein Thrombosis/Pulmonary Embolism Present on Admission: No <Neno Alva - Last Filed: 11/21/17 13:09> History of Present Illness Primary Care Physician: Jose Manuel Aldrich MD - Diagnosis (1) Cellulitis Inpatient Certification: I certify that the inpatient services were ordered in accordance with Medicare regulations governing the order. This includes certification that hospital inpatient services are reasonable and necessary and in the case of services not specified as inpatient-only under 42 CFR 419.22(n), that they are appropriately provided as inpatient services in accordance to with the 2-midnight benchmark under 43 CFR 412.3(e) [facility] - Medical History Medical History: Medical History (Last Updated 11/17/17 @ 09:35 by BRUNO Cr) Diastolic dysfunction History of femur fracture Atherosclerosis Cholelithiasis Elevated hemoglobin A1c measurement GERD (gastroesophageal reflux disease) Gout Hiatal hernia Hyperlipidemia Hypertension Metabolic syndrome Obesity Osteoarthritis Paroxysmal A-fib VSD (ventricular septal defect) Vitamin D deficiency - Surgical History Surgical History: Surgical History (Last Updated 11/17/17 @ 08:48 by BRUNO Cr) History of appendectomy History of cardiac cath History of inguinal hernia repair Hx of tonsillectomy - Family History Family History: Family History (Last Updated 11/17/17 @ 08:36 by BRUNO Cr) Mother CHF (congestive heart failure) Medications and Allergies Active Medications: Active Medications Acetaminophen (Tylenol) 650 mg PO Q6H PRN PRN Reason: temp > 100.4 Hydrocodone Bitart/Acetaminophen ([place] 5/325) 1 tab PO Q6H PRN PRN Reason: pain 1-4 Last Admin: 11/20/17 12:45 Dose: 1 tab Hydrocodone Bitart/Acetaminophen ([place] 10/325) 1 tab PO Q4H PRN PRN Reason: pain 5-10 Last Admin: 11/21/17 10:57 Dose: 1 tab Allopurinol (Zyloprim) 100 mg PO EVERY OTHER DAY [facility] Aspirin (Aspirin Chew) 81 mg PO DAILY [facility] Last Admin: 11/21/17 09:27 Dose: 81 mg Atorvastatin Calcium (Lipitor) 10 mg PO DAILY [facility] Last Admin: 11/21/17 09:26 Dose: 10 mg Betamethasone/Clotrimazole (Lotrisone Cream) 1 applicatio TOPICAL TID [facility] Last Admin: 11/21/17 12:23 Dose: 1 applicatio Docusate Sodium (Colace) 100 mg PO BID [facility] Last Admin: 11/21/17 09:27 Dose: Not Given Fluconazole (Diflucan) 150 mg PO DAILY [facility] Last Admin: 11/21/17 09:26 Dose: 150 mg Clindamycin/Sodium Chloride (Cleocin 600 Mg/Ns Premix) 600 mg in 50 mls @ 100 mls/hr IV.SIG Q8H [facility] Last Infusion: 11/21/17 12:23 Dose: Infused Levofloxacin (Levaquin) 750 mg PO DAILY [facility] Last Admin: 11/21/17 09:26 Dose: 750 mg Losartan Potassium (Cozaar) 50 mg PO BID [facility] Last Admin: 11/21/17 09:26 Dose: 50 mg Methylprednisolone Sodium Succinate (Solumedrol Inj) 20 mg IV.PUSH Q12HR [facility] Stop: 11/22/17 21:01 Last Admin: 11/21/17 09:31 Dose: 20 mg Metoprolol Tartrate (Lopressor) 12.5 mg PO BID [facility] Last Admin: 11/21/17 09:26 Dose: 12.5 mg Miscellaneous (Pill Splitter) 1 each [facility] Pantoprazole Sodium (Protonix) 40 mg PO DAILY [facility] Last Admin: 11/21/17 09:26 Dose: 40 mg Exam Vital signs: Vital Signs 11/20/17 16:31 11/20/17 19:01 11/20/17 20:00 Temperature 98.0 F 98.3 F Pulse Rate 82 95 H Respiratory Rate 18 16 17 Blood Pressure 154/74 H 167/79 H Pulse Oximetry 96 93 L 11/21/17 00:00 11/21/17 04:00 11/21/17 08:00 Temperature 98.1 F 98.4 F 97.6 F Pulse Rate 93 H 74 92 H Respiratory Rate 16 16 20 Blood Pressure 155/75 H 140/72 175/87 H Pulse Oximetry 94 L 96 11/21/17 10:57 Temperature Pulse Rate Respiratory Rate 16 Blood Pressure Pulse Oximetry Intake & Output 11/20/17 11/21/17 11/21/17 18:59 06:59 18:59 Intake Total 50 / 50 290 / 290 100 / 100 Balance 50 / 50 290 / 290 100 / 100 Weight 113 kg Intake: IV 50 / 50 50 / 50 100 / 100 Cleocin 600 mg/NS Premix 600 mg 50 / 50 50 / 50 100 / 100 In 50 ml @ 100 mls/hr IV.SIG Q8H [facility] Rx#:[id number] Oral 240 / 240 Other: # Voids 3 Results - Labs CBC & Chem 7: 11/21/17 06:44 11/21/17 06:44 Labs: Short CBC 11/21/17 Range/Units 06:44 WBC 6.9 (4.0-11.0) th/mm3 Hgb 12.6 L (13.0-17.0) gm/dL Hct 37.7 L (39.0-51.0) % Plt Count 468 H (150-450) th/mm3 BMP 11/21/17 06:44 Sodium 135 L Potassium 4.3 Chloride 102 Carbon Dioxide 21.8 BUN 19 H Creatinine 0.97 Calcium 9.9 Caprini VTE Risk Assessment Caprini VTE Risk Assessment: Moderate/High Risk (score >= 2) Caprini Risk Assessment Model: Point Value = 1 Point Value = 2 Point Value = 3 Point Value = 5 Age 41-60 Minor surgery BMI > 25 kg/m2 Swollen legs Varicose veins or History of unexplained or recurrent spontaneous Oral contraceptives or hormone replacement Sepsis (< 1 month) Serious lung disease, including pneumonia (< 1 month) Abnormal pulmonary function Acute myocardial infarction Congestive heart failure (< 1 month) History of inflammatory bowel disease Medical patient at bed rest Age 61-74 Arthroscopic surgery Major open surgery (> 45 min) Laparoscopic surgery (> 45 min) Malignancy Confined to bed (> 72 hours) Immobilizing plaster cast Central venous access Age >= 75 History of VTE Family history of VTE Factor V Leiden Prothrombin [id number] Lupus anticoagulant Anticardiolipin antibodies Elevated serum homocysteine Heparin-induced thrombocytopenia Other congenital or acquired thrombophilia Stroke (< 1 month) Elective arthroplasty Hip, pelvis, or leg fracture Acute spinal cord injury (< 1 month) Prophylaxis Regimen: Total Risk Factor Score Risk Level Prophylaxis Regimen 0-1 Low Early ambulation 2 Moderate Order ONE of the following: *Sequential Compression Device (SCD) *Heparin 5000 units SQ BID 3-4 Higher Order ONE of the following medications: *Heparin 5000 units SQ TID *Enoxaparin/Lovenox 40 mg SQ daily (WT < 150 kg, CrCl > 30 mL/min) *Enoxaparin/Lovenox 30 mg SQ daily (WT < 150 kg, CrCl > 10-29 mL/min) *Enoxaparin/Lovenox 30 mg SQ BID (WT < 150 kg, CrCl > 30 mL/min) AND/OR *Sequential Compression Device (SCD) 5 or more Highest Order ONE of the following medications: *Heparin 5000 units SQ TID (Preferred with Epidurals) *Enoxaparin/Lovenox 40 mg SQ daily (WT < 150 kg, CrCl > 30 mL/min) *Enoxaparin/Lovenox 30 mg SQ daily (WT < 150 kg, CrCl > 10-29 mL/min) *Enoxaparin/Lovenox 30 mg SQ BID (WT < 150 kg, CrCl > 30 mL/min) AND *Sequential Compression Device (SCD) Assessment and Plan - Assessment (1) Cellulitis Code(s): L03.90 - Cellulitis, unspecified Status: Acute - Plan Patient examined. Assessment and plan formulated with Lulú Concepcion PA-C. I agree with the above. <Lulú Concepcion E - Last Filed: 11/17/17 15:17> (1) Cellulitis Qualifiers: Site of cellulitis: extremity Site of cellulitis of extremity: lower extremity Laterality: left Qualified Code(s): L03.116 - Cellulitis of left lower limb (3) Diabetes Qualifiers: Diabetes mellitus type: type 2 Diabetes mellitus group home insulin use: without intermodal dispatcher use <Neno Alva - Last Filed: 11/21/17 13:09> (1) Cellulitis Qualifiers: Site of cellulitis: extremity Site of cellulitis of extremity: lower extremity Laterality: left Qualified Code(s): L03.116 - Cellulitis of left lower limb
[2017-11-17] MEDS ORDERED: METOPROLOL TARTRATE 100 MG PO SCH (09:00)
[2017-11-17] MEDS ORDERED: amLODIPine 5 MG Tablet PO SCH (09:00)
[2017-11-17] MEDS: Sod Chloride 0.9% Inj 1,000 ML IV.CONT SCH (09:07)
[2017-11-17] MEDS: Acetaminophen 325 MG Tablet PO PRN (09:08)
[2017-11-17] MEDS: Metoprolol Tartrate 25 MG Tablet PO SCH ×2 (09:09→20:06)
[2017-11-17] MEDS: Piperacil/Tazo 4.5 GM Premix 4.5 GM/100 ML BAG IV.SIG SCH ×3 (09:10→20:07)
--- NOTE | 2017-11-17 13:49 | US ---
EXAM DATE: 11/17/2017 1:21 PM EDT AGE/SEX: 57 years / Male INDICATIONS: Abscess. CLINICAL DATA: This is the patient's subsequent encounter. Patient reports that signs and symptoms h ave been present for 1 day and indicates a pain score of 7/10. MEDICAL/SURGICAL HISTORY: . Cellulitis. None. COMPARISON: [facility] [place] VENOUS DOPPLER LEG LEFT, 11/16/2017. . FINDINGS: Ultrasound examination of region of abnormality in the left mid anterior calf region demonstrates sof t tissue edema without focal subcutaneous drainable fluid collection. CONCLUSION: 1. Soft tissue edema without focal drainable fluid collection. Electronically signed by: Lazarus Ricci MD 11/17/2017 1:47 PM EDT
[2017-11-18] MEDS: Piperacil/Tazo 4.5 GM Premix 4.5 GM/100 ML BAG IV.SIG SCH ×3 (01:18→21:49)
[2017-11-18] MEDS: Sod Chloride 0.9% Inj 1,000 ML IV.CONT SCH (01:22)
[2017-11-18 05:11] LABS: Baso % (Auto) 0.4 % (0.0-2.0); Eos # (Auto) 0.1 th/mm3 (0.0-0.4); Eos % (Auto) 1.3 % (0.0-4.0); Hematocrit 34.4 % (39.0-51.0); Hemoglobin 11.7 gm/dL (13.0-17.0); Lymph # (Auto) 1.5 th/mm3 (1.0-4.8); Mean Corpuscular Hemoglobin 27.7 pg (27.0-34.0); Mean Corpuscular Volume 81.3 fL (80.0-100.0); Mono # (Auto) 0.6 th/mm3 (0.0-0.9); Neut # (Auto) 5.9 th/mm3 (1.8-7.7); Neut % (Auto) 73.3 % (16.0-70.0); Platelet Count 420 th/mm3 (150-450); Red Blood Count 4.23 mil/mm3 (4.50-5.90); Red Cell Distribution Width 14.6 % (11.6-17.2); White Blood Count 8.1 th/mm3 (4.0-11.0)
[2017-11-18 05:40] LABS: Albumin 2.8 g/dL (3.4-5.0); Anion Gap 11 meq/L (5-15); Aspartate Aminotransferase 50 U/L (15-37); Blood Urea Nitrogen 15 mg/dL (7-18); Calcium 9.2 mg/dL (8.5-10.1); Chloride 104 meq/L (98-107); Glomerular Filtration Rate 73 mL/min (>89); Glucose,Random 114 mg/dL (74-106); Potassium 4.3 meq/L (3.5-5.1); Sodium 135 meq/L (136-145)
[2017-11-18 05:47] LABS: Alanine Aminotransferase 90 U/L (12-78); Alkaline Phosphatase 86 U/L (45-117); Total Protein 8.2 g/dL (6.4-8.2)
[2017-11-18] MEDS: Metoprolol Tartrate 25 MG Tablet PO SCH ×2 (08:32→21:39)
[2017-11-18] MEDS: Acetaminophen 325 MG Tablet PO PRN (16:24)
[2017-11-18] MEDS ORDERED: Acetaminophen 325 MG Tablet PO PRN (18:27)
--- NOTE | 2017-11-18 18:46 | P.PNIM ---
Subjective Interval history: Follow up cellulitis LLE Patient feels that the redness and edema is, "about the same as yesterday." C/O mild pain in Left ankle and knee worse with ambulation Physical Exam Vital signs: Vital Signs 11/17/17 20:14 11/18/17 00:00 11/18/17 04:00 Temperature 98.1 F 97.9 F 98.4 F Pulse Rate 80 86 82 Respiratory Rate 18 17 18 Blood Pressure 141/85 H 139/82 132/76 Pulse Oximetry 96 11/18/17 08:55 11/18/17 12:25 11/18/17 15:30 Temperature 98.4 F 98.2 F 98.6 F Pulse Rate 78 77 78 Respiratory Rate 18 20 20 Blood Pressure 145/88 H 158/90 H 151/84 H Pulse Oximetry 96 95 96 Intake & Output 11/17/17 11/18/17 11/18/17 18:59 06:59 18:59 Intake Total 460 / 460 1340 / 1340 1050 / 1050 Output Total 1100 / 1100 Balance 460 / 460 1340 / 1340 -50 / -50 Intake: IV 100 / 100 1100 / 1100 1050 / 1050 NS Inj 1,000 ML @ 84 mls/hr IV. 1000 / 1000 1000 / 1000 CONT .[id number] BLAKE Rx#:[id number] Zosyn 4.5 GM Premix 4.5 gm In 100 / 100 100 / 100 50 / 50 100 ml @ 200 mls/hr IV.SIG Q8H BLAKE Rx#:[id number] Oral 360 / 360 240 / 240 Output: Urine 1100 / 1100 Narrative: GENERAL: NAD, AAOx3 CARDIO: Regular rate and rhythm. 4/6 pansystolic murmur RESP: No accessory muscle use. Clear to auscultation. Breath sounds equal bilaterally. ABD: Abdomen soft, non-tender, nondistended. Hepatic and splenic margins not palpable. EXT: LLE with erythema on the [place] from the ankle up to the below the knee, not completely encompassing the calf, an area on the skin with some induration noted. No drainage noted NEUROLOGICAL: Awake and alert. No obvious cranial nerve deficits. Motor grossly within normal limits. Five out of 5 muscle strength in the arms and legs. Normal speech. PSYCHIATRIC: Appropriate mood and affect; insight and judgment normal. Results - Labs CBC & Chem 7: 11/21/17 06:44 11/21/17 06:44 Laboratory Results - last 24 hr 11/18/17 11/18/17 11/18/17 04:37 04:37 08:31 WBC 8.1 RBC 4.23 L Hgb 11.7 L Hct 34.4 L MCV 81.3 MCH 27.7 MCHC 34.0 RDW 14.6 Plt Count 420 MPV 7.0 Neut % (Auto) 73.3 H Lymph % (Auto) 18.0 [place] % (Auto) 7.0 Eos % (Auto) 1.3 Baso % (Auto) 0.4 Neut # (Auto) 5.9 Lymph # (Auto) 1.5 [place] # (Auto) 0.6 Eos # (Auto) 0.1 Baso # (Auto) 0.0 WBC Differential . Differential Comment Auto diff final Sodium 135 L Potassium 4.3 Chloride 104 Carbon Dioxide 20.0 L Anion Gap 11 BUN 15 Creatinine 1.05 Estimated GFR 73 L POC Glucose 109 Random Glucose 114 H Calcium 9.2 Total Bilirubin 0.6 AST 50 H ALT 90 H Alkaline Phosphatase 86 Total Protein 8.2 D Albumin 2.8 L 11/18/17 11/18/17 12:41 16:27 WBC RBC Hgb Hct MCV MCH MCHC RDW Plt Count MPV Neut % (Auto) Lymph % (Auto) [place] % (Auto) Eos % (Auto) Baso % (Auto) Neut # (Auto) Lymph # (Auto) [place] # (Auto) Eos # (Auto) Baso # (Auto) WBC Differential Differential Comment Sodium Potassium Chloride Carbon Dioxide Anion Gap BUN Creatinine Estimated GFR POC Glucose 131 H 118 H Random Glucose Calcium Total Bilirubin AST ALT Alkaline Phosphatase Total Protein Albumin Microbiology 11/16/17 20:07 Wound - Leg Gram Stain - Final 11/16/17 20:07 Wound - Leg Wound Culture - Preliminary 11/16/17 20:07 Blood - Peripheral Aerobic Blood Culture - Preliminary No growth in 2 days 11/16/17 20:07 Blood - Peripheral Anaerobic Blood Culture - Preliminary No growth in 2 days 11/16/17 20:12 Blood - Peripheral Aerobic Blood Culture - Preliminary No growth in 2 days 11/16/17 20:12 Blood - Peripheral Anaerobic Blood Culture - Preliminary No growth in 2 days - Imaging Impressions Venous Doppler Study 11/16/17 19:39 CONCLUSION: 1. Negative for deep venous thrombosis Lower Extremity Ultrasound 11/17/17 00:00 CONCLUSION: 1. Soft tissue edema without focal drainable fluid collection. Assessment and Plan - Assessment (1) Cellulitis Code(s): L03.90 - Cellulitis, unspecified Status: Acute Plan: - Pt is a 57 y/o WM with HTN, hyperlipidemia, diastolic dysfunction, diabetes ( diet controlled), congenital VSD, and paroxysmal atrial fibrillation. - He presented to the ED at [facility] on 11/16/17 with complaints of LLE cellulitis. He states that 8 days ago his LLE swelled up and he had an area of pain and redness on the left maradiaga. Pt was having some chills at that time but denies any fevers. 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 He had an US for the LE which was negative for DVT at that time. He was started on Bactrim and Lasix at that time. He states that there was really no improvement and when he was seen by his Artificial Flower Maker, Dr. Torrez, on 11/12 for his annual physical for work clearance he was given a prescription for Keflex as well. He did not feel there was really much of any improvement in the erythema and he had an area on the maradiaga that was weeping yellow/clear drainage for the last few days. This prompted him to come to the ED for further evaluation. - In the ED his labs noted a normal WBC count of 7.4 and he has been afebrile. - LE US was negative for DVT - Blood cultures NGTD - Wound culture was taken in the ED but its not clear if there was drainage that was cultured or if it was a culture from the bullous wound on his maradi[place] - Pt was given IV Vanc and Zosyn in the ED - continue Zosyn 3.75 mg IV Q8H - (11/18) add clindamycin IV and Diflucan PO - Lower Extremity Ultrasound 11/17/17 00:00 CONCLUSION: 1. Soft tissue edema without focal drainable fluid collection. - Pain control with acetaminophen and norco PRN - Supportive care - Follow wound response to meds - DVT prophylaxis with Lovenox - Attending Attestation Patient examined. Assessment and plan formulated with Ela Newby PA-C. I agree with the above. (1) Cellulitis Qualifiers: Site of cellulitis: extremity Site of cellulitis of extremity: lower extremity Laterality: left Qualified Code(s): L03.116 - Cellulitis of left lower limb
[2017-11-18] MEDS: Fluconazole 100 MG Tablet PO SCH (21:38)
[2017-11-18] MEDS: Docusate Sodium 100 MG Capsule PO SCH (21:39)
[2017-11-18] MEDS: Piperacil/Tazo 3.375 GM Premix 50 ML IV.SIG SCH (21:40)
[2017-11-18] MEDS: Clindamycin 600 mg/NS Premix 600 MG/50 ML PIGGYBACK IV.SIG SCH (22:32)
[2017-11-19] MEDS: Piperacil/Tazo 3.375 GM Premix 50 ML IV.SIG SCH ×2 (02:20→11:37)
[2017-11-19] MEDS: Clindamycin 600 mg/NS Premix 600 MG/50 ML PIGGYBACK IV.SIG SCH ×3 (04:01→21:08)
[2017-11-19 08:10] LABS: Baso % (Auto) 0.5 % (0.0-2.0); Eos # (Auto) 0.1 th/mm3 (0.0-0.4); Eos % (Auto) 0.7 % (0.0-4.0); Hematocrit 34.6 % (39.0-51.0); Hemoglobin 11.5 gm/dL (13.0-17.0); Lymph # (Auto) 1.7 th/mm3 (1.0-4.8); Lymph % (Auto) 19.4 % (9.0-44.0); Mean Corpuscular HGB Conc 33.2 % (32.0-36.0); Mean Corpuscular Hemoglobin 26.7 pg (27.0-34.0); Mean Corpuscular Volume 80.2 fL (80.0-100.0); Mean Platelet Volume 7.2 fL (7.0-11.0); Mono # (Auto) 0.7 th/mm3 (0.0-0.9); Mono % (Auto) 8.4 % (0.0-8.0); Neut # (Auto) 6.2 th/mm3 (1.8-7.7); Platelet Count 432 th/mm3 (150-450); Red Blood Count 4.31 mil/mm3 (4.50-5.90); Red Cell Distribution Width 14.6 % (11.6-17.2); White Blood Count 8.7 th/mm3 (4.0-11.0)
[2017-11-19] MEDS: Docusate Sodium 100 MG Capsule PO SCH ×2 (09:47→21:08)
[2017-11-19] MEDS: Metoprolol Tartrate 25 MG Tablet PO SCH ×2 (09:48→21:07)
[2017-11-19] MEDS: Fluconazole 100 MG Tablet PO SCH (09:48)
--- NOTE | 2017-11-19 13:50 | P.PNIM ---
Subjective Interval history: Follow cellulitis LLE Patient reports increased pain LLE LLE erythema and edema area appears darker red today than yesterday Physical Exam Vital signs: Vital Signs 11/18/17 15:30 11/18/17 20:00 11/18/17 21:48 Temperature 98.6 F 99.1 F Pulse Rate 78 82 Respiratory Rate 20 18 18 Blood Pressure 151/84 H 127/58 L Pulse Oximetry 96 96 11/19/17 00:00 11/19/17 02:35 11/19/17 04:00 Temperature 99.6 F 98.6 F 98.0 F Pulse Rate 82 80 77 Respiratory Rate 16 18 18 Blood Pressure 144/82 H 146/86 H 136/87 Pulse Oximetry 95 96 95 11/19/17 08:30 11/19/17 12:07 Temperature 97.9 F 98.0 F Pulse Rate 79 83 Respiratory Rate 18 18 Blood Pressure 141/85 H 144/80 H Pulse Oximetry 97 96 Intake & Output 11/18/17 11/19/17 11/19/17 18:59 06:59 18:59 Intake Total 1050 / 1050 200 / 200 Output Total 1100 / 1100 300 / 300 Balance -50 / -50 -100 / -100 Weight 114 kg Intake: IV 1050 / 1050 200 / 200 NS Inj 1,000 ML @ 84 mls/hr IV. 1000 / 1000 CONT .[id number] BLAKE Rx#:[id number] Cleocin 600 mg/NS Premix 600 mg 100 / 100 In 50 ml @ 100 mls/hr IV.SIG Q8H BLAKE Rx#:[id number] Zosyn 3.375 GM Premix 50 ML @ 50 / 50 100 mls/hr IV.SIG Q8H BLAKE Rx#: [id number] Zosyn 4.5 GM Premix 4.5 gm In 50 / 50 50 / 50 100 ml @ 200 mls/hr IV.SIG Q8H BLAKE Rx#:[id number] Output: Urine 1100 / 1100 300 / 300 Narrative: GENERAL: NAD, AAOx3 CARDIO: Regular rate and rhythm. 4/6 pansystolic murmur RESP: No accessory muscle use. Clear to auscultation. Breath sounds equal bilaterally. ABD: Abdomen soft, non-tender, nondistended. Hepatic and splenic margins not palpable. EXT: LLE with erythema on the [place] from the ankle up to the below the knee, not completely encompassing the calf, an area on the skin with induration noted. No drainage noted NEUROLOGICAL: Awake and alert. No obvious cranial nerve deficits. Motor grossly within normal limits. Five out of 5 muscle strength in the arms and legs. Normal speech. PSYCHIATRIC: Appropriate mood and affect; insight and judgment normal. Results - Labs CBC & Chem 7: 11/21/17 06:44 11/21/17 06:44 Laboratory Results - last 24 hr 11/18/17 11/18/17 11/19/17 16:27 22:59 02:26 WBC RBC Hgb Hct MCV MCH MCHC RDW Plt Count MPV Neut % (Auto) Lymph % (Auto) [place] % (Auto) Eos % (Auto) Baso % (Auto) Neut # (Auto) Lymph # (Auto) [place] # (Auto) Eos # (Auto) Baso # (Auto) WBC Differential Differential Comment POC Glucose 118 H 142 H 112 H 11/19/17 11/19/17 07:12 09:44 WBC 8.7 RBC 4.31 L Hgb 11.5 L Hct 34.6 L MCV 80.2 MCH 26.7 L MCHC 33.2 RDW 14.6 Plt Count 432 MPV 7.2 Neut % (Auto) 71.0 H Lymph % (Auto) 19.4 [place] % (Auto) 8.4 H Eos % (Auto) 0.7 Baso % (Auto) 0.5 Neut # (Auto) 6.2 Lymph # (Auto) 1.7 [place] # (Auto) 0.7 Eos # (Auto) 0.1 Baso # (Auto) 0.0 WBC Differential . Differential Comment Auto diff final POC Glucose 107 Microbiology 11/16/17 20:07 Blood - Peripheral Aerobic Blood Culture - Preliminary No growth in 3 days 11/16/17 20:07 Blood - Peripheral Anaerobic Blood Culture - Preliminary No growth in 3 days 11/16/17 20:12 Blood - Peripheral Aerobic Blood Culture - Preliminary No growth in 3 days 11/16/17 20:12 Blood - Peripheral Anaerobic Blood Culture - Preliminary No growth in 3 days 11/16/17 20:07 Wound - Leg Gram Stain - Final 11/16/17 20:07 Wound - Leg Wound Culture - Preliminary Assessment and Plan - Assessment (1) Cellulitis Code(s): L03.90 - Cellulitis, unspecified Status: Acute Plan: Cellulitis - Pt is a 57 y/o WM with HTN, hyperlipidemia, diastolic dysfunction, diabetes ( diet controlled), congenital VSD, and paroxysmal atrial fibrillation. - He presented to the ED at [facility] on 11/16/17 with complaints of LLE cellulitis. He states that 8 days ago his LLE swelled up and he had an area of pain and redness on the left maradiaga. Pt was having some chills at that time but denies any fevers. 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 He had an US for the LE which was negative for DVT at that time. He was started on Bactrim and Lasix at that time. He states that there was really no improvement and when he was seen by his Christian Counselor, Dr. Torrez, on 11/12 for his annual physical for work clearance he was given a prescription for Keflex as well. He did not feel there was really much of any improvement in the erythema and he had an area on the maradiaga that was weeping yellow/clear drainage for the last few days. This prompted him to come to the ED for further evaluation. - In the ED his labs noted a normal WBC count of 7.4 and he has been afebrile. - LE US was negative for DVT - Blood cultures NGTD - Wound culture was taken in the ED but its not clear if there was drainage that was cultured or if it was a culture from the bullous wound on his maradiaga - Pt was given IV Vanc and Zosyn in the ED - continue Zosyn 3.75 mg IV Q8H - (11/18) add clindamycin IV and Diflucan PO - Lower Extremity Ultrasound 11/17/17 00:00 CONCLUSION: 1. Soft tissue edema without focal drainable fluid collection. - Pain control with acetaminophen and norco PRN - Supportive care - LLE appears darker red, patient reports more discomfort today than yesterday- does not seem to be improving - Consult ID for further assistance - DVT prophylaxis with Lovenox ELVIRA (acute kidney injury) - He was noted to have ELVIRA with a Creatinine of 1.34/BUN 17, GFR 55. His baseline creatinine is around 0.8. - (11/18) BUN 15, Creatinine 1.05, estimated GFR 73 - This is likely medication induced (Lasix and Bactrim) as well as a component of dehydration - Give IVF - Monitor labs closely - Avoid Nephrotoxic agents - BMP in AM Diabetes - Pt is diet controlled as an outpt at this time - NovoLog SSI - Accu checks HTN (hypertension) - BP is low normal at admission - Hold Norvasc and Losartan - Resume lower dose of Metoprolol as BP allows -Monitor BP closely Paroxysmal A-fib - Pt is in NSR currently - Cont. BB - Telemetry Diastolic dysfunction - Pt had recently been placed on Lasix last week for LE edema related to the cellulitis but does not normally take this - He follows with Dr. Torrez regularly - Appears currently compensated -Previous outpt 2D echo (06/01/17) - Moderate LVH - Small VSD - Estimated EF 50-55% - Grade 2 diastolic dysfunction - LA mildly dilated - Mild aortic dilatation at the level of the sinuses of Valsalva. Aortic root diameter is measured at 4.1cm - Trace mitral valve regurgitation - Mild tricuspid valve regurgitation - Estimated mild pulmonary HTN. Mild pulmonary valve regug - Plan Patient examined. Assessment and plan formulated with Ela Newby PA-C. I agree with the above. (1) Cellulitis Qualifiers: Site of cellulitis: extremity Site of cellulitis of extremity: lower extremity Laterality: left Qualified Code(s): L03.116 - Cellulitis of left lower limb
--- NOTE | 2017-11-19 16:33 | P.CONID ---
History of Present Illness Service: Infectious disease Consult date: 11/19/17 Requesting Physician: Neno Alva Reason for Consult: Evaluate patient with cellulitis LLE, very slow to improve Primary Care Provider: Jose Manuel Aldrich MD Family Provider: Jose Manuel Aldrich MD Chief Complaint: LLE redness and pain History of Present Illness: Patient seen and examined. Records reviewed. Patient is a 57-year-old male, presented to the hospital for further evaluation of redness, and swelling on his left lower extremity. His problem started about 8 days prior to admission and he was in [place] at that time. He hit his maradiaga and he had a small scrape that came up. 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 He noted what he called as a rash on his left leg, and some swelling, and he went to have that evaluated while he was in [place], and apparently an ultrasound was done which was negative for DVT, and he was prescribed Bactrim and Lasix. He returned to the area, and he had a follow-up appointment with his long line teamster, and at that time the redness was worse, and he was given a prescription for Keflex which he started taking about 4 days prior to admission. Patient initially had some areas with some drainage, and that has stopped. Patient stated that his problem really did not improve, and the swelling got worse. He denies any fevers or chills. Denies any respiratory complaint or any GI or any urinary. Review of Systems Constitutional: Denies chills, Denies fever(s) Eyes: Denies discharge, Denies pain Ears, Nose, Mouth, and Throat: Denies dry mouth, Denies facial pain, Denies mouth lesions, Denies sore throat Cardiovascular: Denies chest pain, Denies shortness of breath Respiratory: Denies cough, Denies shortness of breath Gastrointestinal: Denies abdominal pain, Denies loose stools, Denies nausea, Denies pain with swallowing, Denies vomiting Genitourinary: Denies painful urination, Denies urinary frequency, Denies urinary hesitancy, Denies urinary incontinence Neurologic: Denies headache(s), Denies localized weakness PMFSH - History History Provided By: Patient - Medical History Medical History: Medical History (Last Reviewed 11/19/17 @ 16:39 by Krystle Link MD) Diastolic dysfunction History of femur fracture Atherosclerosis Cholelithiasis Elevated hemoglobin A1c measurement GERD (gastroesophageal reflux disease) Gout Hiatal hernia Hyperlipidemia Hypertension Metabolic syndrome Obesity Osteoarthritis Paroxysmal A-fib VSD (ventricular septal defect) Vitamin D deficiency - Surgical History Surgical History: Surgical History (Last Reviewed 11/19/17 @ 16:39 by Krystle Link MD) History of appendectomy History of cardiac cath History of inguinal hernia repair Hx of tonsillectomy - Family History Family History: Family History (Last Reviewed 11/19/17 @ 16:39 by Krystle Link MD) Mother CHF (congestive heart failure) - Tobacco History Second Hand Smoke Exposure: Yes Tobacco Use In Past 30 Days: No Smoking Status: Former smoker Tobacco Type: Cigarettes Packs Per Day: 1 - Alcohol History How Often Do You Have a Drink Containing Alcohol: Monthly or less - Substance Use History Substance History: No History of Abuse - Travel History Recent Travel Out of the Country Within the Last 8 Weeks: No - Immunization History Tetanus Immunization: Unsure Hx Influenza Vaccine This Season: No Medications and Allergies Active Medications: Active Medications Acetaminophen (Tylenol) 650 mg PO Q6H PRN PRN Reason: pain 1-5 Hydrocodone Bitart/Acetaminophen ([place] 5/325) 1 tab PO Q6H PRN PRN Reason: PAIN 6-10;IF UNABLE TO TAKE PO Last Admin: 11/19/17 09:54 Dose: 1 tab Aspirin (Aspirin Chew) 81 mg PO DAILY [facility] Last Admin: 11/19/17 09:46 Dose: 81 mg Atorvastatin Calcium (Lipitor) 10 mg PO DAILY [facility] Last Admin: 11/19/17 09:45 Dose: 10 mg Betamethasone/Clotrimazole (Lotrisone Cream) 1 applicatio TOPICAL TID [facility] Last Admin: 11/19/17 14:23 Dose: 1 applicatio Docusate Sodium (Colace) 100 mg PO BID [facility] Last Admin: 11/19/17 09:47 Dose: 100 mg Fluconazole (Diflucan) 150 mg PO DAILY [facility] Last Admin: 11/19/17 09:48 Dose: 150 mg Piperacillin/Tazobactam/Dextrose (Zosyn 3.375 Gm Premix) 50 mls @ 100 mls/hr IV.SIG Q8H [facility] Last Admin: 11/19/17 11:37 Dose: Not Given Clindamycin/Sodium Chloride (Cleocin 600 Mg/Ns Premix) 600 mg in 50 mls @ 100 mls/hr IV.SIG Q8H [facility] Last Admin: 11/19/17 11:35 Dose: 100 mls/hr Metoprolol Tartrate (Lopressor) 12.5 mg PO BID [facility] Last Admin: 11/19/17 09:48 Dose: 12.5 mg Miscellaneous (Pill Splitter) 1 each OTHER [facility] Pantoprazole Sodium (Protonix) 40 mg PO DAILY [facility] Last Admin: 11/19/17 09:48 Dose: 40 mg Allergies Allergy/AdvReac Type Severity Reaction Status Date / Time No Known Allergies Allergy Uncoded 02/02/17 21:20 Home Medications Medication Instructions Recorded Confirmed Type allopurinol 100 mg PO EVERY OTHER DAY 11/17/17 11/17/17 History amlodipine 5 mg PO DAILY 11/17/17 11/17/17 History aspirin [Rex Chewable Aspirin] 81 mg PO DAILY 11/17/17 11/17/17 History cholecalciferol (vitamin D3) 1,000 unit PO DAILY 11/17/17 11/17/17 History [Vitamin D3] furosemide [Lasix] 20 mg PO DAILY 11/17/17 11/17/17 History losartan 50 mg PO BID 11/17/17 11/17/17 History metoprolol tartrate 100 mg PO BID 11/17/17 11/17/17 History omega-3 fatty acids 2,000 mg PO DAILY 11/17/17 11/17/17 History pantoprazole 40 mg PO DAILY 11/17/17 11/17/17 History rosuvastatin 5 mg PO DAILY 11/17/17 11/17/17 History Exam Vital signs: Vital Signs 11/18/17 20:00 11/18/17 21:48 11/19/17 00:00 Temperature 99.1 F 99.6 F Pulse Rate 82 82 Respiratory Rate 18 18 16 Blood Pressure 127/58 L 144/82 H Pulse Oximetry 96 95 11/19/17 02:35 11/19/17 04:00 11/19/17 08:30 Temperature 98.6 F 98.0 F 97.9 F Pulse Rate 80 77 79 Respiratory Rate 18 18 18 Blood Pressure 146/86 H 136/87 141/85 H Pulse Oximetry 96 95 97 11/19/17 12:07 11/19/17 16:22 Temperature 98.0 F 98.1 F Pulse Rate 83 90 Respiratory Rate 18 18 Blood Pressure 144/80 H 149/78 H Pulse Oximetry 96 97 Intake & Output 11/18/17 11/19/17 11/19/17 18:59 06:59 18:59 Intake Total 1050 / 1050 200 / 200 Output Total 1100 / 1100 300 / 300 Balance -50 / -50 -100 / -100 Weight 114 kg Intake: IV 1050 / 1050 200 / 200 NS Inj 1,000 ML @ 84 mls/hr IV. 1000 / 1000 CONT .[id number] BLAKE Rx#:[id number] Cleocin 600 mg/NS Premix 600 mg 100 / 100 In 50 ml @ 100 mls/hr IV.SIG Q8H BLAKE Rx#:[id number] Zosyn 3.375 GM Premix 50 ML @ 50 / 50 100 mls/hr IV.SIG Q8H BLAKE Rx#: [id number] Zosyn 4.5 GM Premix 4.5 gm In 50 / 50 50 / 50 100 ml @ 200 mls/hr IV.SIG Q8H BLAKE Rx#:[id number] Output: Urine 1100 / 1100 300 / 300 Narrative: Physical Examination GENERAL: Patient is a well-nourished, well-developed male, awake and alert, not in respiratory distress. SKIN: Cool and dry. No generalized rash, no ecchymoses and no evidence of embolic lesions. HEAD: Atraumatic. Normocephalic. No temporal wasting, or tenderness. EYES: [place] conjunctiva. No petechia or hemorrhage. Pupils equal, round and reactive to light. Extraocular movements full and intact. No scleral icterus. No injection or drainage. EARS, NOSE AND THROAT: Nose without bleeding or purulent nasal discharge. No sinus tenderness. Mucous membranes pink and moist. No oral lesions noted. No exudate. No oral thrush. NECK: Trachea midline. Supple and not tender, no meningeal signs CARDIOVASCULAR: Regular rate and rhythm. has systolic murmur L precordium/LPSB RESPIRATORY: Clear to auscultation. Breath sounds equal bilaterally. No rales , wheezing or rhonchi ABDOMEN: Soft, non-tender, nondistended. Bowel sounds present and normoactive. No guarding. No rebound. No organomegaly. EXTREMITIES: No clubbing, cyanosis. LLE larger compared to RLE. The edema is improving since the skin is wrinkling. There is a non-blanching redness on his anterior L leg with an area of fat necrosis that is about 2 x 3 in size. Indurated at red areas, tender on palpation, and no draining wound. No joint effusion, has good ROM. No calf tenderness. NEUROLOGICAL: Awake and alert. Cranial nerves grossly intact. Motor grossly within normal limits. PSYCHIATRIC: Normal affect, calm and cooperative. LINE: No evidence of infection Results - Labs CBC & Chem 7: 11/19/17 07:12 11/18/17 04:37 Labs: Laboratory Results - last 24 hr 11/18/17 11/18/17 11/19/17 16:27 22:59 02:26 WBC RBC Hgb Hct MCV MCH MCHC RDW Plt Count MPV Neut % (Auto) Lymph % (Auto) [place] % (Auto) Eos % (Auto) Baso % (Auto) Neut # (Auto) Lymph # (Auto) [place] # (Auto) Eos # (Auto) Baso # (Auto) WBC Differential Differential Comment POC Glucose 118 H 142 H 112 H 11/19/17 11/19/17 07:12 09:44 WBC 8.7 RBC 4.31 L Hgb 11.5 L Hct 34.6 L MCV 80.2 MCH 26.7 L MCHC 33.2 RDW 14.6 Plt Count 432 MPV 7.2 Neut % (Auto) 71.0 H Lymph % (Auto) 19.4 [place] % (Auto) 8.4 H Eos % (Auto) 0.7 Baso % (Auto) 0.5 Neut # (Auto) 6.2 Lymph # (Auto) 1.7 [place] # (Auto) 0.7 Eos # (Auto) 0.1 Baso # (Auto) 0.0 WBC Differential . Differential Comment Auto diff final POC Glucose 107 Assessment and Plan - Plan Impression Cellulitis LLE, usually due to Staph and Strep Mold in C/S, likely contaminant Hx diastolic dysfunction Recommendation Continue Clinda Stop Zosyn PO Levaquin Elevate LLE MOnitor response to new Abx regimen Monitor progress I will follow along with you Thank you for this consultation
[2017-11-19] MEDS: levoFLOXacin 750 MG Tablet PO SCH (17:27)
[2017-11-20] MEDS: Clindamycin 600 mg/NS Premix 600 MG/50 ML PIGGYBACK IV.SIG SCH ×3 (04:42→21:14)
[2017-11-20] MEDS: Fluconazole 100 MG Tablet PO SCH (09:55)
[2017-11-20] MEDS: levoFLOXacin 750 MG Tablet PO SCH (09:55)
[2017-11-20] MEDS: Metoprolol Tartrate 25 MG Tablet PO SCH ×2 (09:56→21:12)
--- NOTE | 2017-11-20 11:02 | P.PNID ---
Subjective Remarks: Patient is a 57-year-old male, presented to the hospital for further evaluation of redness, and swelling on his left lower extremity. His problem started about 8 days prior to admission and he was in [place] at that time. He hit his maradiaga and he had a small scrape that came up. 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 He noted what he called as a rash on his left leg, and some swelling, and he went to have that evaluated while he was in [place], and apparently an ultrasound was done which was negative for DVT, and he was prescribed Bactrim and Lasix. He returned to the area, and he had a follow-up appointment with his speech language pathologist prn, and at that time the redness was worse, and he was given a prescription for Keflex which he started taking about 4 days prior to admission. Patient initially had some areas with some drainage, and that has stopped. Patient stated that his problem really did not improve, and the swelling got worse. He denies any fevers or chills. Denies any respiratory complaint or any GI or any urinary. Notes reviewed Afebrile C/O pain in his L ankle this morning Antibiotics: Clindamycin Levaquin Lines: No evidence of infection Past Medical History: Diastolic dysfunction History of femur fracture Atherosclerosis Cholelithiasis Elevated hemoglobin A1c measurement GERD (gastroesophageal reflux disease) Gout Hiatal hernia Hyperlipidemia Hypertension Metabolic syndrome Obesity Osteoarthritis Paroxysmal A-fib VSD (ventricular septal defect) Vitamin D deficiency History of appendectomy History of cardiac cath History of inguinal hernia repair Hx of tonsillectomy Allergies/Adverse Reactions: Allergies No Known Allergies Allergy (Uncoded 02/02/17 21:20) Objective Vital Signs 11/19/17 12:07 11/19/17 16:22 11/19/17 20:00 Temperature 98.0 F 98.1 F 98.8 F Pulse Rate 83 90 94 H Respiratory Rate 18 18 18 Blood Pressure 144/80 H 149/78 H 148/78 H Pulse Oximetry 96 97 94 L 11/20/17 00:00 11/20/17 05:47 11/20/17 08:29 Temperature 98.8 F 98.5 F 98.5 F Pulse Rate 82 83 83 Respiratory Rate 18 19 18 Blood Pressure 155/86 H 136/84 142/77 H Pulse Oximetry 95 97 93 L Intake & Output 11/19/17 11/20/17 11/20/17 18:59 06:59 18:59 Intake Total 50 / 50 170 / 170 Output Total 500 / 500 Balance 50 / 50 -330 / -330 Weight 113.2 kg Intake: IV 50 / 50 50 / 50 Cleocin 600 mg/NS Premix 600 mg 50 / 50 50 / 50 In 50 ml @ 100 mls/hr IV.SIG Q8H BLAKE Rx#:[id number] Oral 120 / 120 Output: Urine 500 / 500 Other: # Bowel Movements 0 11/16/17 20:07 Wound - Leg Gram Stain - Final 11/16/17 20:07 Wound - Leg Wound Culture - Preliminary Mold species 11/16/17 20:07 Blood - Peripheral Aerobic Blood Culture - Preliminary No growth in 3 days 11/16/17 20:07 Blood - Peripheral Anaerobic Blood Culture - Preliminary No growth in 3 days 11/16/17 20:12 Blood - Peripheral Aerobic Blood Culture - Preliminary No growth in 3 days 11/16/17 20:12 Blood - Peripheral Anaerobic Blood Culture - Preliminary No growth in 3 days Lab - Hematology Results 11/19/17 07:12 WBC 8.7 RBC 4.31 L Hgb 11.5 L Hct 34.6 L MCV 80.2 MCH 26.7 L MCHC 33.2 RDW 14.6 Plt Count 432 MPV 7.2 Neut % (Auto) 71.0 H Lymph % (Auto) 19.4 Bleckley % (Auto) 8.4 H Eos % (Auto) 0.7 Baso % (Auto) 0.5 Neut # (Auto) 6.2 Lymph # (Auto) 1.7 Bleckley # (Auto) 0.7 Eos # (Auto) 0.1 Baso # (Auto) 0.0 WBC Differential . Differential Comment Auto diff final Lab - Chemistry Results 11/18/17 11/18/17 11/18/17 12:41 16:27 22:59 POC Glucose 131 H 118 H 142 H 11/19/17 11/19/17 11/19/17 02:26 09:44 14:28 POC Glucose 112 H 107 144 H 11/19/17 11/19/17 11/20/17 17:29 21:22 08:51 POC Glucose 114 H 121 H 135 H Imaging: ITS Impressions Venous Doppler Study 11/16/17 19:39 CONCLUSION: 1. Negative for deep venous thrombosis Lower Extremity Ultrasound 11/17/17 00:00 CONCLUSION: 1. Soft tissue edema without focal drainable fluid collection. Physical Exam: Physical Examination GENERAL: awake and alert, not in respiratory distress. SKIN: Cool and dry. No generalized rash, no ecchymoses and no evidence of embolic lesions. HEAD: Atraumatic. Normocephalic. No temporal wasting, or tenderness. EYES: Mears conjunctiva. No petechia or hemorrhage. Pupils equal, round and reactive to light. Extraocular movements full and intact. No scleral icterus. No injection or drainage. EARS, NOSE AND THROAT: Nose without bleeding or purulent nasal discharge. No sinus tenderness. Mucous membranes pink and moist. No oral lesions noted. No exudate. No oral thrush. NECK: Trachea midline. Supple and not tender, no meningeal signs CARDIOVASCULAR: Regular rate and rhythm. has systolic murmur L precordium/LPSB RESPIRATORY: Clear to auscultation. Breath sounds equal bilaterally. No rales , wheezing or rhonchi ABDOMEN: Soft, non-tender, nondistended. Bowel sounds present and normoactive. No guarding. No rebound. No organomegaly. EXTREMITIES: No clubbing, cyanosis. LLE larger compared to RLE. The edema is improving since the skin is wrinkling. There is a non-blanching redness on his anterior L leg with an area of fat necrosis that is about 2 x 3 in size. Indurated at red areas, tender on palpation, and no draining wound. No joint effusion, has good ROM. No calf tenderness. L foot now with an area of erythema lateral foot, tender on palpation NEUROLOGICAL: Awake and alert. Cranial nerves grossly intact. Motor grossly within normal limits. PSYCHIATRIC: Normal affect, calm and cooperative. LINE: No evidence of infection Assessment and Plan - Plan Impression Cellulitis LLE, usually due to Staph and Strep Mold in C/S, likely contaminant Hx diastolic dysfunction New pain and redness on L foot, ?inflammatory Recommendation Continue Clinda Continue PO Levaquin Elevate LLE Give trial of steroids for possible inflammatory process on his L foot Monitor response to new Abx regimen Monitor progress Dr Stalin Lubin available if needed this weekend; please call if with questions this weekend Explained plan to patient
--- NOTE | 2017-11-20 14:09 | P.PNIM ---
Subjective Interval history: Follow up: LLE cellulitis Patient seen with Dr. Alva Patient c/o pain left ankle Patient's significant other expressed concerns that a specific bacteria has not been identified Physical Exam Vital signs: Vital Signs 11/19/17 16:22 11/19/17 20:00 11/20/17 00:00 Temperature 98.1 F 98.8 F 98.8 F Pulse Rate 90 94 H 82 Respiratory Rate 18 18 18 Blood Pressure 149/78 H 148/78 H 155/86 H Pulse Oximetry 97 94 L 95 11/20/17 05:47 11/20/17 08:29 11/20/17 12:07 Temperature 98.5 F 98.5 F 98.1 F Pulse Rate 83 83 84 Respiratory Rate 19 18 18 Blood Pressure 136/84 142/77 H 139/78 Pulse Oximetry 97 93 L 95 Intake & Output 11/19/17 11/20/17 11/20/17 18:59 06:59 18:59 Intake Total 50 / 50 220 / 220 Output Total 500 / 500 Balance 50 / 50 -280 / -280 Weight 113.2 kg Intake: IV 50 / 50 100 / 100 Cleocin 600 mg/NS Premix 600 mg 50 / 50 100 / 100 In 50 ml @ 100 mls/hr IV.SIG Q8H BLAKE Rx#:[id number] Oral 120 / 120 Output: Urine 500 / 500 Other: # Bowel Movements 0 Narrative: GENERAL: NAD, AAOx3 CARDIO: Regular rate and rhythm. 4/6 pansystolic murmur RESP: No accessory muscle use. Clear to auscultation. Breath sounds equal bilaterally. ABD: Abdomen soft, non-tender, nondistended. Hepatic and splenic margins not palpable. EXT: LLE with erythema on the maradiaga from the ankle up to the below the knee, not completely encompassing the calf, an area on the skin with induration noted. No drainage noted - improved from yesterday less erythema today NEUROLOGICAL: Awake and alert. No obvious cranial nerve deficits. Motor grossly within normal limits. Five out of 5 muscle strength in the arms and legs. Normal speech. PSYCHIATRIC: Appropriate mood and affect; insight and judgment normal. Results - Labs CBC & Chem 7: 11/21/17 06:44 11/21/17 06:44 Laboratory Results - last 24 hr 11/19/17 11/19/17 11/19/17 14:28 17:29 21:22 POC Glucose 144 H 114 H 121 H 11/20/17 11/20/17 08:51 12:47 POC Glucose 135 H 112 H Microbiology 11/16/17 20:07 Wound - Leg Gram Stain - Final 11/16/17 20:07 Wound - Leg Wound Culture - Preliminary Mold species 11/16/17 20:07 Blood - Peripheral Aerobic Blood Culture - Preliminary No growth in 4 days 11/16/17 20:07 Blood - Peripheral Anaerobic Blood Culture - Preliminary No growth in 4 days 11/16/17 20:12 Blood - Peripheral Aerobic Blood Culture - Preliminary No growth in 4 days 11/16/17 20:12 Blood - Peripheral Anaerobic Blood Culture - Preliminary No growth in 4 days Assessment and Plan - Assessment (1) Cellulitis Code(s): L03.90 - Cellulitis, unspecified Status: Acute Plan: Cellulitis - Pt is a 57 y/o WM with HTN, hyperlipidemia, diastolic dysfunction, diabetes ( diet controlled), congenital VSD, and paroxysmal atrial fibrillation. - He presented to the ED at [facility] [place] on 11/16/17 with complaints of LLE cellulitis. He states that 8 days ago his LLE swelled up and he had an area of pain and redness on the left maradiaga. Pt was having some chills at that time but denies any fevers. 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 He had an US for the LE which was negative for DVT at that time. He was started on Bactrim and Lasix at that time. He states that there was really no improvement and when he was seen by his Envelope Maker, Dr. Torrez, on 11/12 for his annual physical for work clearance he was given a prescription for Keflex as well. He did not feel there was really much of any improvement in the erythema and he had an area on the maradiaga that was weeping yellow/clear drainage for the last few days. This prompted him to come to the ED for further evaluation. - In the ED his labs noted a normal WBC count of 7.4 and he has been afebrile. - LE US was negative for DVT - Blood cultures NGTD - Wound culture was taken in the ED but its not clear if there was drainage that was cultured or if it was a culture from the bullous wound on his maradiaga - culture grew mold species, per ID likely contamination. No specific bacteria identified - Pt was given IV Vanc and Zosyn in the ED - Lower Extremity Ultrasound 11/17/17 00:00 CONCLUSION: 1. Soft tissue edema without focal drainable fluid collection. - Pain control with acetaminophen and norco PRN - Supportive care - LLE appears darker red, patient reports more discomfort today than yesterday- does not seem to be improving - Consult ID for further assistance, appreciate input - ID added solumedrol 20 mg IV BID x 6 doses - Patient on Zosyn (11/16/17 - 11/18/17) Vancomycin (11/16/17) Clindamycin IV (11/18/17 - present) Levaquin (11/19/17 - present) Diflucan (11/18/17 - present) - DVT prophylaxis with Lovenox ELVIRA (acute kidney injury) - He was noted to have ELVIRA with a Creatinine of 1.34/BUN 17, GFR 55. His baseline creatinine is around 0.8. - (11/18) BUN 15, Creatinine 1.05, estimated GFR 73 - This is likely medication induced (Lasix and Bactrim) as well as a component of dehydration - Give IVF - Monitor labs closely - Avoid Nephrotoxic agents Diabetes - Pt is diet controlled as an outpt at this time - NovoLog SSI - Accu checks HTN (hypertension) - BP is low normal at admission - Hold Norvasc - resume brittany losartan 50 mg Po BID - Resume lower dose of Metoprolol as BP allows -Monitor BP closely Paroxysmal A-fib - Pt is in NSR currently - Cont. BB - Telemetry Diastolic dysfunction - Pt had recently been placed on Lasix last week for LE edema related to the cellulitis but does not normally take this - He follows with Dr. Torrez regularly - Appears currently compensated -Previous outpt 2D echo (06/01/17) - Moderate LVH - Small VSD - Estimated EF 50-55% - Grade 2 diastolic dysfunction - LA mildly dilated - Mild aortic dilatation at the level of the sinuses of Valsalva. Aortic root diameter is measured at 4.1cm - Trace mitral valve regurgitation - Mild tricuspid valve regurgitation - Estimated mild pulmonary HTN. Mild pulmonary valve regug - culture grew mold species, per ID likely contamination. No specific bacteria identified - Patient's significant other expressed concerns/frustration that a specific bacteria has not been identified. Dr. Alva explained in detail the process of identifying cause and treatment strategy of cellulitis. Dr. Alva also explained that there is no drainage or fluid collection to provide further information. Questions were answers to best of our ability. - Plan Patient examined. Assessment and plan formulated with Ela GUPTA I agree with the above. (1) Cellulitis Qualifiers: Site of cellulitis: extremity Site of cellulitis of extremity: lower extremity Laterality: left Qualified Code(s): L03.116 - Cellulitis of left lower limb
[2017-11-20] MEDS: MethylPREDNISolone Sod Succinate Inj 40 MG/ML Vial IV.PUSH SCH ×2 (15:06→21:15)
[2017-11-20] MEDS: Docusate Sodium 100 MG Capsule PO SCH ×2 (21:14→21:17)
[2017-11-21] MEDS: Clindamycin 600 mg/NS Premix 600 MG/50 ML PIGGYBACK IV.SIG SCH ×3 (06:03→20:25)
[2017-11-21] MEDS: levoFLOXacin 750 MG Tablet PO SCH (09:26)
[2017-11-21] MEDS: Metoprolol Tartrate 25 MG Tablet PO SCH ×2 (09:26→20:30)
[2017-11-21] MEDS: Fluconazole 100 MG Tablet PO SCH (09:26)
[2017-11-21] MEDS: Docusate Sodium 100 MG Capsule PO SCH ×2 (09:27→20:18)
[2017-11-21] MEDS: MethylPREDNISolone Sod Succinate Inj 40 MG/ML Vial IV.PUSH SCH ×2 (09:31→20:30)
[2017-11-21 09:35] LABS: Baso % (Auto) 0.1 % (0.0-2.0); Hematocrit 37.7 % (39.0-51.0); Hemoglobin 12.6 gm/dL (13.0-17.0); Lymph # (Auto) 0.8 th/mm3 (1.0-4.8); Lymph % (Auto) 11.3 % (9.0-44.0); Mean Corpuscular HGB Conc 33.5 % (32.0-36.0); Mean Corpuscular Hemoglobin 26.9 pg (27.0-34.0); Mean Corpuscular Volume 80.2 fL (80.0-100.0); Mean Platelet Volume 7.6 fL (7.0-11.0); Mono # (Auto) 0.1 th/mm3 (0.0-0.9); Mono % (Auto) 1.5 % (0.0-8.0); Neut % (Auto) 87.1 % (16.0-70.0); Platelet Count 468 th/mm3 (150-450); Red Cell Distribution Width 14.5 % (11.6-17.2); White Blood Count 6.9 th/mm3 (4.0-11.0)
[2017-11-21 09:54] LABS: Calcium 9.9 mg/dL (8.5-10.1); Carbon Dioxide 21.8 meq/L (21.0-32.0); Potassium 4.3 meq/L (3.5-5.1)
--- NOTE | 2017-11-21 13:27 | P.PNIM ---
Subjective Interval history: No new complaints. RLE is less painful today. Physical Exam Vital signs: Vital Signs 11/20/17 16:31 11/20/17 19:01 11/20/17 20:00 Temperature 98.0 F 98.3 F Pulse Rate 82 95 H Respiratory Rate 18 16 17 Blood Pressure 154/74 H 167/79 H Pulse Oximetry 96 93 L Narrative: GENERAL: NAD, AAOx3 CARDIO: Regular rate and rhythm. 4/6 pansystolic murmur RESP: No accessory muscle use. Clear to auscultation. Breath sounds equal bilaterally. ABD: Abdomen soft, non-tender, nondistended. Hepatic and splenic margins not palpable. EXT: LLE with erythema on the maradiaga from the ankle up to the below the knee, not completely encompassing the calf, an area on the skin with induration noted. No drainage noted - improving from admission with less erythema. NEUROLOGICAL: Awake and alert. No obvious cranial nerve deficits. Motor grossly within normal limits. Five out of 5 muscle strength in the arms and legs. Normal speech. PSYCHIATRIC: Appropriate mood and affect; insight and judgment normal. Results - Labs CBC & Chem 7: 11/21/17 06:44 11/21/17 06:44 Microbiology 11/16/17 20:07 Blood - Peripheral Aerobic Blood Culture - Final No growth in 5 days 11/16/17 20:07 Blood - Peripheral Anaerobic Blood Culture - Final No growth in 5 days 11/16/17 20:12 Blood - Peripheral Aerobic Blood Culture - Final No growth in 5 days 11/16/17 20:12 Blood - Peripheral Anaerobic Blood Culture - Final No growth in 5 days 11/16/17 20:07 Wound - Leg Gram Stain - Final 11/16/17 20:07 Wound - Leg Wound Culture - Preliminary Mold species Assessment and Plan - Assessment (1) Cellulitis Code(s): L03.90 - Cellulitis, unspecified Status: Acute Plan: Cellulitis - Pt is a 57 y/o WM with HTN, hyperlipidemia, diastolic dysfunction, diabetes ( diet controlled), congenital VSD, and paroxysmal atrial fibrillation. - He presented to the ED at [facility] [place] on 11/16/17 with complaints of LLE cellulitis. He states that 8 days ago his LLE swelled up and he had an area of pain and redness on the left maradiaga. Pt was having some chills at that time but denies any fevers. 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 He had an US for the LE which was negative for DVT at that time. He was started on Bactrim and Lasix at that time. He states that there was really no improvement and when he was seen by his Reflesher, Dr. Torrez, on 11/12 for his annual physical for work clearance he was given a prescription for Keflex as well. He did not feel there was really much of any improvement in the erythema and he had an area on the maradiaga that was weeping yellow/clear drainage for the last few days. This prompted him to come to the ED for further evaluation. - In the ED his labs noted a normal WBC count of 7.4 and he has been afebrile. - LE US was negative for DVT - Blood cultures NGTD - Wound culture was taken in the ED but its not clear if there was drainage that was cultured or if it was a culture from the bullous wound on his maradiaga - culture grew mold species, per ID likely contamination. No specific bacteria identified - Pt was given IV Vanc and Zosyn in the ED - Lower Extremity Ultrasound 11/17/17 00:00 CONCLUSION: 1. Soft tissue edema without focal drainable fluid collection. - Pain control with acetaminophen and norco PRN - Supportive care - comgm with ID - ID added solumedrol 20 mg IV BID x 6 doses - Patient on Zosyn (11/16/17 - 11/18/17) Vancomycin (11/16/17) Clindamycin IV (11/18/17 - present) Levaquin (11/19/17 - present) Diflucan (11/18/17 - present) - DVT prophylaxis with Lovenox - LLE cellulitis improving (11/21). - Pt interviewed and examined & case d/w pt/significant other - Pt will likely require several more days of hospitalization with IV ABX before he is ready for discharge. GOUT - improving - Pt reports h/o gout - Pt c/o pain in left ankle c/w previous gout pain - pt started on IV solumedrol, allopurinol resume, prn narcotics ELVIRA (acute kidney injury) - improved from admission - He was noted to have ELVIRA with a Creatinine of 1.34/BUN 17, GFR 55. His baseline creatinine is around 0.8. - (11/18) BUN 15, Creatinine 1.05, estimated GFR 73 - CR 0.97 (11/21) Diabetes - Pt is diet controlled as an outpt at this time - obtain HgA1C - higher reading with IV solumedrol - NovoLog SSI - Accu checks HTN (hypertension) - BP is low normal at admission - Hold Norvasc - resume brittany losartan 50 mg Po BID - increase Metoprolol to 25mg BID -Monitor BP closely Paroxysmal A-fib - Pt is in NSR currently - Cont. BB - Telemetry Diastolic dysfunction - Pt had recently been placed on Lasix last week for LE edema related to the cellulitis but does not normally take this - He follows with Dr. Torrez regularly - Appears currently compensated -Previous outpt 2D echo (06/01/17) - Moderate LVH - Small VSD - Estimated EF 50-55% - Grade 2 diastolic dysfunction - LA mildly dilated - Mild aortic dilatation at the level of the sinuses of Valsalva. Aortic root diameter is measured at 4.1cm - Trace mitral valve regurgitation - Mild tricuspid valve regurgitation - Estimated mild pulmonary HTN. Mild pulmonary valve regug - culture grew mold species, per ID likely contamination. No specific bacteria identified (1) Cellulitis Qualifiers: Site of cellulitis: extremity Site of cellulitis of extremity: lower extremity Laterality: left Qualified Code(s): L03.116 - Cellulitis of left lower limb
[2017-11-21] MEDS ORDERED: Dextrose 50% in Water 50 ML Vial IV.PUSH PRN (18:49)
[2017-11-21] MEDS: Insulin NovoLOG Aspart Correctional Sugar Inj SQ SCH ×2 (20:40→21:00)
[2017-11-22] MEDS: Clindamycin 600 mg/NS Premix 600 MG/50 ML PIGGYBACK IV.SIG SCH ×3 (04:16→21:04)
[2017-11-22] MEDS: Docusate Sodium 100 MG Capsule PO SCH ×2 (08:01→21:11)
[2017-11-22] MEDS: Metoprolol Tartrate 25 MG Tablet PO SCH ×2 (08:02→21:11)
[2017-11-22] MEDS: Allopurinol 100 MG Tablet PO SCH (08:02)
[2017-11-22] MEDS: Fluconazole 100 MG Tablet PO SCH (08:02)
[2017-11-22] MEDS: MethylPREDNISolone Sod Succinate Inj 40 MG/ML Vial IV.PUSH SCH ×2 (08:02→21:11)
[2017-11-22] MEDS: levoFLOXacin 750 MG Tablet PO SCH (08:02)
[2017-11-22] MEDS: Insulin NovoLOG Aspart Correctional Sugar Inj SQ SCH ×4 (08:04→21:11)
--- NOTE | 2017-11-22 12:25 | P.PNIM ---
Subjective Interval history: Follow up cellulitis Patient feels that erythema and pain improving ankle pain, "subsiding." offers no new concerns/complaints Physical Exam Vital signs: Vital Signs 11/21/17 15:38 11/21/17 16:00 11/21/17 20:00 Temperature 97.5 F L 97.6 F Pulse Rate 81 83 Respiratory Rate 16 20 18 Blood Pressure 158/83 H 140/73 Pulse Oximetry 95 96 11/22/17 00:00 11/22/17 04:00 11/22/17 08:00 Temperature 97.7 F 97.2 F L 98.1 F Pulse Rate 71 69 68 Respiratory Rate 16 18 18 Blood Pressure 129/76 121/60 133/66 Pulse Oximetry 95 93 L 93 L Intake & Output 11/21/17 11/22/17 11/22/17 18:59 06:59 18:59 Intake Total 820 / 820 530 / 530 50 / 50 Output Total 800 / 800 Balance 20 / 20 530 / 530 50 / 50 Weight 113.7 kg Intake: IV 100 / 100 50 / 50 50 / 50 Cleocin 600 mg/NS Premix 600 mg 100 / 100 50 / 50 50 / 50 In 50 ml @ 100 mls/hr IV.SIG Q8H BLAKE Rx#:[id number] Oral 720 / 720 480 / 480 Output: Urine 800 / 800 Other: # Voids 2 Narrative: GENERAL: NAD, AAOx3 CARDIO: Regular rate and rhythm. 4/6 pansystolic murmur RESP: No accessory muscle use. Clear to auscultation. Breath sounds equal bilaterally. ABD: Abdomen soft, non-tender, nondistended. Hepatic and splenic margins not palpable. EXT: LLE with erythema on the maradiaga from the ankle up to the below the knee, not completely encompassing the calf, an area on the skin with induration noted. No drainage noted - improving from admission with less erythema. NEUROLOGICAL: Awake and alert. No obvious cranial nerve deficits. Motor grossly within normal limits. Five out of 5 muscle strength in the arms and legs. Normal speech. PSYCHIATRIC: Appropriate mood and affect; insight and judgment normal. Results - Labs CBC & Chem 7: 11/21/17 06:44 11/21/17 06:44 Laboratory Results - last 24 hr 11/21/17 11/22/17 11/22/17 20:36 00:36 08:01 POC Glucose 244 H 177 H 167 H 11/22/17 11:19 POC Glucose 145 H Microbiology 11/16/17 20:07 Blood - Peripheral Aerobic Blood Culture - Final No growth in 5 days 11/16/17 20:07 Blood - Peripheral Anaerobic Blood Culture - Final No growth in 5 days 11/16/17 20:12 Blood - Peripheral Aerobic Blood Culture - Final No growth in 5 days 11/16/17 20:12 Blood - Peripheral Anaerobic Blood Culture - Final No growth in 5 days Assessment and Plan - Assessment (1) Cellulitis Code(s): L03.90 - Cellulitis, unspecified Status: Acute Plan: Cellulitis - Pt is a 57 y/o WM with HTN, hyperlipidemia, diastolic dysfunction, diabetes ( diet controlled), congenital VSD, and paroxysmal atrial fibrillation. - He [place] [facility] [place] with complaints of LLE cellulitis. He states that 8 days ago his LLE swelled up and he had an area of pain and redness on the left maradiaga. Pt was having some chills at that time but denies any fevers. 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 He had an US for the LE which was negative for DVT at that time. He was started on Bactrim and Lasix at that time. He states that there was really no improvement and when he was seen by his Security System Analyst, Dr. Torrez, on 11/12 for his annual physical for work clearance he was given a prescription for Keflex as well. He did not feel there was really much of any improvement in the erythema and he had an area on the maradiaga that was weeping yellow/clear drainage for the last few days. This prompted him to come to the ED for further evaluation. - In the ED his labs noted a normal WBC count of 7.4 and he has been afebrile. - LE US was negative for DVT - Blood cultures NGTD - Wound culture was taken in the ED but its not clear if there was drainage that was cultured or if it was a culture from the bullous wound on his maradiaga - culture grew mold species, per ID likely contamination. No specific bacteria identified - Pt was given IV Vanc and Zosyn in the ED - Lower Extremity Ultrasound 11/17/17 00:00 CONCLUSION: 1. Soft tissue edema without focal drainable fluid collection. - culture grew mold species, per ID likely contamination. No specific bacteria identified - Pain control with acetaminophen and norco PRN - Supportive care - comgm with ID - Patient on Zosyn (11/16/17 - 11/18/17) Vancomycin (11/16/17) Clindamycin IV (11/18/17 - present) Levaquin (11/19/17 - present) Diflucan (11/18/17 - present) - check CMP in AM - DVT prophylaxis with Lovenox - LLE cellulitis improving GOUT - improving - Pt reports h/o gout - Pt c/o pain in left ankle c/w previous gout pain - pt started on IV solumedrol for a total of 6 doses, allopurinol resumed, prn narcotics ELVIRA (acute kidney injury) - improved from admission - He was noted to have ELVIRA with a Creatinine of 1.34/BUN 17, GFR 55. His baseline creatinine is around 0.8. - (11/18) BUN 15, Creatinine 1.05, estimated GFR 73 - CR 0.97 (11/21) Diabetes - Pt denies having DM prior to hospitalization, patient reports he is, "prediabetic" - HgA1C pending - higher reading with IV solumedrol last dose due today (11/22/17) - NovoLog SSI - Accu checks HTN (hypertension) - BP is low normal at admission - Hold Norvasc - resume brittany losartan 50 mg Po BID - increase Metoprolol to 25mg BID -Monitor BP closely Paroxysmal A-fib - Pt is in NSR currently - Cont. BB - Telemetry Diastolic dysfunction - Pt had recently been placed on Lasix last week for LE edema related to the cellulitis but does not normally take this - He follows with Dr. Torrez regularly - Appears currently compensated -Previous outpt 2D echo (06/01/17) - Moderate LVH - Small VSD - Estimated EF 50-55% - Grade 2 diastolic dysfunction - LA mildly dilated - Mild aortic dilatation at the level of the sinuses of Valsalva. Aortic root diameter is measured at 4.1cm - Trace mitral valve regurgitation - Mild tricuspid valve regurgitation - Estimated mild pulmonary HTN. Mild pulmonary valve regug - Plan Patient examined. Assessment and plan formulated with Ela Newby PA-C. I agree with the above. Pt's cellulitis at E looked much improved. Anticipate d/c to home 11/23/17 with PO antibiotics. (1) Cellulitis Qualifiers: Site of cellulitis: extremity Site of cellulitis of extremity: lower extremity Laterality: left Qualified Code(s): L03.116 - Cellulitis of left lower limb
[2017-11-22 13:29] LABS: Hemoglobin A1c 5.8 % (4.3-6.0)
[2017-11-23] MEDS: Clindamycin 600 mg/NS Premix 600 MG/50 ML PIGGYBACK IV.SIG SCH ×3 (04:20→20:13)
[2017-11-23] MEDS: levoFLOXacin 750 MG Tablet PO SCH (09:08)
[2017-11-23] MEDS: Fluconazole 100 MG Tablet PO SCH (09:08)
[2017-11-23] MEDS: Metoprolol Tartrate 25 MG Tablet PO SCH ×2 (09:08→20:14)
[2017-11-23] MEDS: Docusate Sodium 100 MG Capsule PO SCH ×2 (09:08→20:14)
[2017-11-23] MEDS: Insulin NovoLOG Aspart Correctional Sugar Inj SQ SCH ×4 (09:09→20:14)
--- NOTE | 2017-11-23 09:33 | P.PNIM ---
Subjective Interval history: says right leg getting betting. Physical Exam Vital signs: Vital Signs 11/22/17 12:00 11/22/17 20:00 11/22/17 21:34 Temperature 97.8 F 98.1 F Pulse Rate 65 79 Respiratory Rate 18 18 18 Blood Pressure 123/76 149/81 H Pulse Oximetry 96 96 Intake & Output 11/22/17 11/23/17 11/23/17 18:59 06:59 18:59 Intake Total 500 / 500 50 / 50 Balance 500 / 500 50 / 50 Intake: IV 100 / 100 50 / 50 Cleocin 600 mg/NS Premix 600 mg 100 / 100 50 / 50 In 50 ml @ 100 mls/hr IV.SIG Q8H BLAKE Rx#:[id number] Oral 400 / 400 Other: # Voids 3 # Bowel Movements 0 heent neg heart reg lung cta abd s/nt ext left maradiaga blistered area with surrounding erythema. Results - Labs CBC & Chem 7: 11/21/17 06:44 11/21/17 06:44 Laboratory Results - last 24 hr 11/21/17 11/22/17 11/22/17 06:44 11:19 18:02 POC Glucose 145 H 179 H Hemoglobin A1c 5.8 11/22/17 11/23/17 21:10 07:54 POC Glucose 204 H 161 H Hemoglobin A1c Assessment and Plan - Assessment (1) Cellulitis Code(s): L03.90 - Cellulitis, unspecified Status: Acute Plan: Cellulitis - Pt is a 57 y/o WM with HTN, hyperlipidemia, diastolic dysfunction, diabetes ( diet controlled), congenital VSD, and paroxysmal atrial fibrillation. - [place] [facility] [place] with complaints of LLE cellulitis. He states that 8 days ago his LLE swelled up and he had an area of pain and redness on the left maradiaga. Pt was having some chills at that time but denies any fevers. 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 He had an US for the LE which was negative for DVT at that time. He was started on Bactrim and Lasix at that time. He states that there was really no improvement and when he was seen by his Experienced Truck Driver, Dr. Torrez, on 11/12 for his annual physical for work clearance he was given a prescription for Keflex as well. He did not feel there was really much of any improvement in the erythema and he had an area on the maradiaga that was weeping yellow/clear drainage for the last few days. This prompted him to come to the ED for further evaluation. - In the ED his labs noted a normal WBC count of 7.4 and he has been afebrile. - LE US was negative for DVT - Blood cultures NGTD - Wound culture was taken in the ED but its not clear if there was drainage that was cultured or if it was a culture from the bullous wound on his maradiaga - culture grew mold species, per ID likely contamination. No specific bacteria identified - Pt was given IV Vanc and Zosyn in the ED - Lower Extremity Ultrasound 11/17/17 00:00 CONCLUSION: 1. Soft tissue edema without focal drainable fluid collection. - culture grew mold species, per ID likely contamination. No specific bacteria identified - Pain control with acetaminophen and norco PRN - Supportive care - comgm with ID - Patient on Zosyn (11/16/17 - 11/18/17) Vancomycin (11/16/17) Clindamycin IV (11/18/17 - present) Levaquin (11/19/17 - present) Diflucan (11/18/17 - present) - DVT prophylaxis with Lovenox - LLE cellulitis improving ....will check with ID for final dc abx reccs and dc tomorrow to home GOUT - improving - Pt reports h/o gout - Pt c/o pain in left ankle c/w previous gout pain - pt started on IV solumedrol for a total of 6 doses, allopurinol resumed, prn narcotics ELVIRA (acute kidney injury) - improved from admission - He was noted to have ELVIRA with a Creatinine of 1.34/BUN 17, GFR 55. His baseline creatinine is around 0.8. - (11/18) BUN 15, Creatinine 1.05, estimated GFR 73 - CR 0.97 (11/21) Diabetes - Pt denies having DM prior to hospitalization, patient reports he is, "prediabetic" - HgA1C pending - higher reading with IV solumedrol last dose due today (11/22/17) - NovoLog SSI - Accu checks HTN (hypertension) - BP is low normal at admission - Hold Norvasc - resume brittany losartan 50 mg Po BID - increase Metoprolol to 25mg BID -Monitor BP closely Paroxysmal A-fib - Pt is in NSR currently - Cont. BB - Telemetry Diastolic dysfunction - Pt had recently been placed on Lasix last week for LE edema related to the cellulitis but does not normally take this - He follows with Dr. Torrez regularly - Appears currently compensated -Previous outpt 2D echo (06/01/17) - Moderate LVH - Small VSD - Estimated EF 50-55% - Grade 2 diastolic dysfunction - LA mildly dilated - Mild aortic dilatation at the level of the sinuses of Valsalva. Aortic root diameter is measured at 4.1cm - Trace mitral valve regurgitation - Mild tricuspid valve regurgitation - Estimated mild pulmonary HTN. Mild pulmonary valve regug (1) Cellulitis Qualifiers: Site of cellulitis: extremity Site of cellulitis of extremity: lower extremity Laterality: left Qualified Code(s): L03.116 - Cellulitis of left lower limb
--- NOTE | 2017-11-23 10:28 | P.PNID ---
Subjective Remarks: Patient is a 57-year-old male, presented to the hospital for further evaluation of redness, and swelling on his left lower extremity. His problem started about 8 days prior to admission and he was in [place] at that time. He hit his maradiaga and he had a small scrape that came up. 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 He noted what he called as a rash on his left leg, and some swelling, and he went to have that evaluated while he was in [place], and apparently an ultrasound was done which was negative for DVT, and he was prescribed Bactrim and Lasix. He returned to the area, and he had a follow-up appointment with his director human services, and at that time the redness was worse, and he was given a prescription for Keflex which he started taking about 4 days prior to admission. Patient initially had some areas with some drainage, and that has stopped. Patient stated that his problem really did not improve, and the swelling got worse. He denies any fevers or chills. Denies any respiratory complaint or any GI or any urinary. Notes reviewed Afebrile Improving Ankle/foot better Antibiotics: Clindamycin Levaquin Lines: No evidence of infection Past Medical History: Diastolic dysfunction History of femur fracture Atherosclerosis Cholelithiasis Elevated hemoglobin A1c measurement GERD (gastroesophageal reflux disease) Gout Hiatal hernia Hyperlipidemia Hypertension Metabolic syndrome Obesity Osteoarthritis Paroxysmal A-fib VSD (ventricular septal defect) Vitamin D deficiency History of appendectomy History of cardiac cath History of inguinal hernia repair Hx of tonsillectomy Allergies/Adverse Reactions: Allergies No Known Allergies Allergy (Uncoded 02/02/17 21:20) Objective Vital Signs 11/22/17 12:00 11/22/17 20:00 11/22/17 21:34 Temperature 97.8 F 98.1 F Pulse Rate 65 79 Respiratory Rate 18 18 18 Blood Pressure 123/76 149/81 H Pulse Oximetry 96 96 Intake & Output 11/22/17 11/23/17 11/23/17 18:59 06:59 18:59 Intake Total 500 / 500 50 / 50 Balance 500 / 500 50 / 50 Intake: IV 100 / 100 50 / 50 Cleocin 600 mg/NS Premix 600 mg 100 / 100 50 / 50 In 50 ml @ 100 mls/hr IV.SIG Q8H BLAKE Rx#:[id number] Oral 400 / 400 Other: # Voids 3 # Bowel Movements 0 11/16/17 20:07 Blood - Peripheral Aerobic Blood Culture - Final No growth in 5 days 11/16/17 20:07 Blood - Peripheral Anaerobic Blood Culture - Final No growth in 5 days 11/16/17 20:12 Blood - Peripheral Aerobic Blood Culture - Final No growth in 5 days 11/16/17 20:12 Blood - Peripheral Anaerobic Blood Culture - Final No growth in 5 days 11/16/17 20:07 Wound - Leg Gram Stain - Final 11/16/17 20:07 Wound - Leg Wound Culture - Preliminary Mold species Lab - Chemistry Results 11/21/17 11/21/17 11/22/17 06:44 20:36 00:36 POC Glucose 244 H 177 H Hemoglobin A1c 5.8 11/22/17 11/22/17 11/22/17 08:01 11:19 18:02 POC Glucose 167 H 145 H 179 H Hemoglobin A1c 11/22/17 11/23/17 21:10 07:54 POC Glucose 204 H 161 H Hemoglobin A1c Imaging: ITS Impressions Venous Doppler Study 11/16/17 19:39 CONCLUSION: 1. Negative for deep venous thrombosis Lower Extremity Ultrasound 11/17/17 00:00 CONCLUSION: 1. Soft tissue edema without focal drainable fluid collection. Physical Exam: Physical Examination GENERAL: awake and alert, not in respiratory distress. SKIN: Cool and dry. No generalized rash, no ecchymoses and no evidence of embolic lesions. HEAD: Atraumatic. Normocephalic. No temporal wasting, or tenderness. EYES: Randolph conjunctiva. No petechia or hemorrhage. Pupils equal, round and reactive to light. Extraocular movements full and intact. No scleral icterus. No injection or drainage. EARS, NOSE AND THROAT: Nose without bleeding or purulent nasal discharge. No sinus tenderness. Mucous membranes pink and moist. No oral lesions noted. No exudate. No oral thrush. NECK: Trachea midline. Supple and not tender, no meningeal signs CARDIOVASCULAR: Regular rate and rhythm. has systolic murmur L precordium/LPSB RESPIRATORY: Clear to auscultation. Breath sounds equal bilaterally. No rales , wheezing or rhonchi ABDOMEN: Soft, non-tender, nondistended. Bowel sounds present and normoactive. No guarding. No rebound. No organomegaly. EXTREMITIES: No clubbing, cyanosis. LLE edema better. Area of redness much improved. Area of fat necrosis smaller and drying up. No joint effusion, has good ROM. No calf tenderness. L foot now with an area of erythema lateral foot, tender on palpation NEUROLOGICAL: Awake and alert. Cranial nerves grossly intact. Motor grossly within normal limits. PSYCHIATRIC: Normal affect, calm and cooperative. LINE: No evidence of infection Assessment and Plan - Plan Impression Cellulitis LLE, usually due to Staph and Strep Mold in C/S, likely contaminant Hx diastolic dysfunction New pain and redness on L foot, ?inflammatory, better with steroids Recommendation Continue Clinda Continue PO Levaquin Elevate LLE TRESSA stockings Should be able to D/C and give 10 days Clinda and Levaquin Explained to patient importance of keeping swelling down
[2017-11-24] MEDS: Clindamycin 600 mg/NS Premix 600 MG/50 ML PIGGYBACK IV.SIG SCH (03:26)
[2017-11-24] MEDS: Fluconazole 100 MG Tablet PO SCH (08:46)
[2017-11-24] MEDS: levoFLOXacin 750 MG Tablet PO SCH (08:46)
[2017-11-24] MEDS: Docusate Sodium 100 MG Capsule PO SCH (08:47)
[2017-11-24] MEDS: Allopurinol 100 MG Tablet PO SCH (08:47)
[2017-11-24] MEDS: Metoprolol Tartrate 25 MG Tablet PO SCH (08:47)
[2017-11-24] MEDS: Insulin NovoLOG Aspart Correctional Sugar Inj SQ SCH (08:47)
--- NOTE | 2017-11-24 09:44 | P.DS ---
Date of admission: 11/16/17 22:46 Primary care physician: Jose Manuel Aldrich MD Attending physician on discharge: Spencer Gandhi Anticipated date of discharge: 11/24/17 Brief History from admission: Mr. Peralta is a pleasant 57 y/o WM with HTN, hyperlipidemia, diastolic dysfunction, diabetes (diet controlled), congenital VSD, and paroxysmal atrial fibrillation. He presented to the ED at [facility] [place] on 11/16/17 with complaints of LLE cellulitis. He states that 8 days ago his LLE swelled up and he had an area of pain and redness on the left maradiaga. Pt was having some chills at that time but denies any fevers. 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 He had an US for the LE which was negative for DVT at that time. He was started on Bactrim and Lasix at that time. He states that there was really no improvement and when he was seen by his Process Control Board Operator, Dr. Torrez, on 11/12 for his annual physical for work clearance he was given a prescription for Keflex as well. He did not feel there was really much of any improvement in the erythema and he had an area on the maradiaga that was weeping yellow/clear drainage for the last few days. This prompted him to come to the ED for further evaluation. In the ED his labs noted a normal WBC count of 7.4 and he has been afebrile. He was noted to have ELVIRA with a Creatinine of 1.34/BUN 17, GFR 55. His baseline creatinine is around 0.8. 2D echo (06/01/17) - Moderate LVH - Small VSD -Estimated EF 50-55% -Grade 2 diastolic dysfunction - LA mildly dilated - Mild aortic dilatation at the level of the sinuses of Valsalva. Aortic root diameter is measured at 4.1cm - Trace mitral valve regurgitation - Mild tricuspid valve regurgitation - Estimated mild pulmonary HTN. Mild pulmonary valve regug DS: Diagnosis - Discharge Diagnosis (1) Cellulitis Status: Acute DS: Summary Hospital Course: Code(s): L03.90 - Cellulitis, unspecified Status: Acute Plan: Cellulitis - Pt is a 57 y/o WM with HTN, hyperlipidemia, diastolic dysfunction, diabetes ( diet controlled), congenital VSD, and paroxysmal atrial fibrillation. - He presented to the ED at [facility] on 11/16/17 with complaints of LLE cellulitis. He states that 8 days ago his LLE swelled up and he had an area of pain and redness on the left maradiaga. Pt was having some chills at that time but denies any fevers. 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 He had an US for the LE which was negative for DVT at that time. He was started on Bactrim and Lasix at that time. He states that there was really no improvement and when he was seen by his Process Control Board Operator, Dr. Torrez, on 11/12 for his annual physical for work clearance he was given a prescription for Keflex as well. He did not feel there was really much of any improvement in the erythema and he had an area on the maradiaga that was weeping yellow/clear drainage for the last few days. This prompted him to come to the ED for further evaluation. - In the ED his labs noted a normal WBC count of 7.4 and he has been afebrile. - LE US was negative for DVT - Blood cultures NGTD - Wound culture was taken in the ED but its not clear if there was drainage that was cultured or if it was a culture from the bullous wound on his maradiaga - culture grew mold species, per ID likely contamination. No specific bacteria identified - Pt was given IV Vanc and Zosyn in the ED - Lower Extremity Ultrasound 11/17/17 00:00 CONCLUSION: 1. Soft tissue edema without focal drainable fluid collection. - culture grew mold species, per ID likely contamination. No specific bacteria identified - Pain control with acetaminophen and norco PRN - Supportive care - comgm with ID - Patient on Zosyn (11/16/17 - 11/18/17) Vancomycin (11/16/17) Clindamycin IV (11/18/17 - present) Levaquin (11/19/17 - present) Diflucan (11/18/17 - present) - DVT prophylaxis with Lovenox - LLE cellulitis improving ...ID recommending complete 10day course or levaquin and clinda. will dc home today. elevate leg and use stocking. f/u pcp this week for recheck. GOUT - improving - Pt reports h/o gout - Pt c/o pain in left ankle c/w previous gout pain - pt started on IV solumedrol for a total of 6 doses, allopurinol resumed, prn narcotics ELVIRA (acute kidney injury) - improved from admission - He was noted to have ELVIRA with a Creatinine of 1.34/BUN 17, GFR 55. His baseline creatinine is around 0.8. - (11/18) BUN 15, Creatinine 1.05, estimated GFR 73 - CR 0.97 (11/21) Diabetes - Pt denies having DM prior to hospitalization, patient reports he is, "prediabetic" - HgA1C pending - higher reading with IV solumedrol last dose due today (11/22/17) - NovoLog SSI - Accu checks HTN (hypertension) -Paroxysmal A-fib - Pt is in NSR currently - Cont. BB - Telemetry Diastolic dysfunction - Pt had recently been placed on Lasix last week for LE edema related to the cellulitis but does not normally take this - He follows with Dr. Torrez regularly - Appears currently compensated -Previous outpt 2D echo (06/01/17) - Moderate LVH - Small VSD - Estimated EF 50-55% - Grade 2 diastolic dysfunction - LA mildly dilated - Mild aortic dilatation at the level of the sinuses of Valsalva. Aortic root diameter is measured at 4.1cm - Trace mitral valve regurgitation - Mild tricuspid valve regurgitation - Estimated mild pulmonary HTN. Mild pulmonary valve regug (1) Cellulitis Qualifiers: Site of cellulitis: extremity Site of cellulitis of extremity: lower extremity Laterality: left Qualified Code(s): L03.116 - Cellulitis of left lower limb - Time Spent with Patient Total time spent providing and/or coordinating discharge services: Greater than 30 minutes - Quality: VTE Deep Vein Thrombosis/Pulmonary Embolism Present on Admission: No Exam Vital signs: Vital Signs 11/23/17 12:00 11/23/17 16:00 11/23/17 21:00 Temperature 97.8 F 97.3 F L 97.9 F Pulse Rate 64 69 75 Respiratory Rate 17 20 17 Blood Pressure 150/76 H 125/72 155/84 H Pulse Oximetry 96 96 96 11/24/17 00:00 11/24/17 04:00 11/24/17 06:52 Temperature 97.3 F L 97.6 F Pulse Rate 64 64 Respiratory Rate 18 16 16 Blood Pressure 126/75 113/60 Pulse Oximetry 95 96 Intake & Output 11/23/17 11/24/17 11/24/17 18:59 06:59 18:59 Intake Total 50 / 50 580 / 580 Output Total 325 / 325 Balance 50 / 50 255 / 255 Weight 113.8 kg Intake: IV 50 / 50 100 / 100 Cleocin 600 mg/NS Premix 600 mg 50 / 50 100 / 100 In 50 ml @ 100 mls/hr IV.SIG Q8H BLAKE Rx#:[id number] Oral 480 / 480 Output:h Urine 325 / 325 Other: # Voids 2 Date of Last Bowel Movement 11/23/17 11/23/17 heart reg lung cta abd s/nt ext. left maradiaga erythema improved Narrative: heart reg lung cta abd s/nt ext left maradiaga blister healing. erythema improving.. swelling much improved. Results Procedures completed during hospitalization: no procedures Labs on day of discharge: Labs from last 24 hours 11/24/17 11/23/17 08:54 20:02 POC Glucose 93 159 H Preliminary micro results at discharge 11/16/17 20:07 Wound Culture - Preliminary Wound - Leg Mold species - Impressions ITS Impressions Venous Doppler Study 11/16/17 19:39 CONCLUSION: 1. Negative for deep venous thrombosis Lower Extremity Ultrasound 11/17/17 00:00 CONCLUSION: 1. Soft tissue edema without focal drainable fluid collection. Discharge Plan - Discharge Disposition Patient Disposition: 01 Discharge Home - Discharge Condition Condition: Stable - Discharge Order Discharge Orders: Discharge Order (Routine); Ordered 11/24/17 Ordered By: Ela Newby - Discharge Details Anticipated Discharge Date: 11/24/17 - Physicians Team Primary Care Provider: Jose Manuel Aldrich Attending Provider: Neno Alva Other Providers: Krystle Link MD
== END 2017-11-24 10:45 | disposition home or self-care (01) ==
LOC: NEPE 18:11 → NEDA 22:46 → NEPGCP 11-17 01:10 → N05 11-19 00:37
PROVIDERS: ADMIT Hospitalist; ATTEND Hospitalist